=== PATIENT | male | born 1945 | race Caucasian/White ===

== ENCOUNTER → 2018-02-04 10:06 | Outpatient (POV) | payer MEDICARE, SELFPAY | PROVIDERS: Visit Provider Dermatology | DX: Z00.00 Encounter for general adult medical examination without abnormal findings (principal) ==

== ENCOUNTER 2020-01-14 10:15 | Emergency (ER) | payer MEDICARE, SELFPAY ==
--- NOTE | 2020-01-14 10:08 | ECG_ITS ---
APPROVED REPORT Exam: Resting ECG HR:50 bpm ECG Measurements Heart Rate 50 AXES WV 218 P -26 QRSd 90 QRS 59 QT 434 T 76 QTc 395 Conclusion Sinus bradycardia with marked sinus arrhythmia with 1st degree AV block Otherwise normal ECG Electronically signed by : Gabriel Hong, 01/15/2020 10:57:32
[2020-01-14 10:16] VITALS: BP 184/76; PULSE 51; RESP 16; TEMP 36.6; O2SAT 98; BMI 31.2
--- NOTE | 2020-01-14 10:20 | HMH.EDCP ---
ED Disposition Clinical Impression: Asymptomatic hypertension Radiculopathy Qualifiers: Spinal region: cervical Qualified Code(s): M54.12 - Radiculopathy, cervical region Disposition: Home, Self-Care Condition on Discharge: Good Instructions: DI for High Blood Pressure, DI for Cervical Radiculopathy Additional Instructions: Return immediately to the emergency department if you develop any chest pain, shortness of breath, new strength or sensation findings on your extremities, confusion, headache, or other acute new concerns. Referrals: PCP,Dina [Primary Care Provider] - Luis A Oseguera [Staff Physician] - 01/15/20 - Critical Care Critical Care Time: No Attestation: On , the high probability of a clinically significant, sudden or life threatening deterioration of the following system(s) required my full and direct attention, intervention and personal management. The time I documented below is in addition to time spent performing reported procedures but includes the following listed in this critical care notation. Medical Decision Making - Medical Records Medical records reviewed: Yes: I reviewed the patient's medical records. - John Inquiry Pt receiving controlled substance: No Vital Signs: 01/14/20 10:16 Temperature 98 F Temperature Source Oral Pulse Rate [Radial] 51 L Respiratory Rate 16 Blood Pressure [Right Arm] 184/76 H Blood Pressure Mean [Right Arm] 112 Blood Pressure Position [Right Arm] Sitting 02 Sat by Pulse Oximetry 98 Oxygen Delivery Method Room Air Orders (Tests/Meds): ORDERS Category Date Time Status XR chest portable Stat Exams 01/14/20 10:23 Stop Req Troponin I Q3H Lab 01/14/20 13:30 Ordered Troponin I Q3H Lab 01/14/20 16:30 Ordered - ECG Data Tracing #1 EKG at [address] segment elevation or depression. No hyperacute T waves. Normal intervals. EKG interpreted by me. Medical Decision Narrative: Patient here essentially with asymptomatic hypertension. He does not have any central nervous system lateralizing motor or sensory complaints, but does have a radiculopathy on the left arm which has been present for quite some time, not in association with hypertension. He is concerned because he was diagnosed with hypertension about 5 weeks ago and has not yet had good control of his blood pressure. This needs to be followed on an outpatient basis and I discussed with him the a set clinical policy that recommends no acute control of asymptomatic hypertension. I did encourage him to return for any acute new concerns such as chest pain, shortness of breath, new back or extremity pain, lateralizing motor or sensory changes. Patient agrees to follow-up with Dr. Oseguera within the next several days for reevaluation. Blood pressure 168 systolic on my exam. Chest Pain HPI - General Chief Complaint: Chest Pain Stated Complaint: chest pain Time Seen by Provider: 01/14/20 10:20 Mode of Arrival: Ambulatory Source of Information: Patient Limitations: No Limitations - History of Present Illness HPI narrative: This is a 74-year-old male with a past medical history significant for hypertension, chronic back pain who presents to the emergency department for evaluation of hypertension. Patient states that he was recently started on blood pressure medication about 5 weeks ago, lisinopril 5 mg. That was not controlling his blood pressure, so dose was increased to 10 mg. He has been trying to work through the [facility] for his care, but has a difficult time getting seen on an outpatient basis. Patient does not have any chest pain or shortness of breath. He has no vertiginous symptoms. He does state that sometimes when he bends over and stands back up he gets lightheaded. He does complain of some left arm tingling, but this is not new, has been present for many months, is constant and is associated with pain in his shoulder and neck. He has had rotator cuff surgery on both arms an
[2020-01-14 11:02] VITALS: BP 170/80; PULSE 50; RESP 18; TEMP 36.7; O2SAT 98
== END 2020-01-14 11:03 | disposition home or self-care (01) ==
PROVIDERS: Emergency Provider Emergency Medicine; PCP Internal Medicine
DX: R07.9 Chest pain, unspecified (principal); I10 Essential (primary) hypertension; M54.12 Radiculopathy, cervical region
CPT/HCPCS: 93005; 99282

== ENCOUNTER → 2020-05-17 09:29 | Outpatient (POV) | payer MEDICARE, SELFPAY | PROVIDERS: Visit Provider Otolaryngology | DX: Z00.00 Encounter for general adult medical examination without abnormal findings (principal) ==

== ENCOUNTER → 2020-05-23 07:53 | Outpatient (CLI) | payer MEDICARE, SELFPAY ==
[2020-05-23 11:07] LABS: Creatinine,Urine Random 69 mg/dL (Not Estab.)
[2020-05-23 14:32] LABS: Collection Time,Urine 24 hours; Creatinine 24 Hour,Urine 2760 mg/24hr (630-2500); Total Volume,Urine 4000 mL (250-2400)
[2020-05-25 14:57] LABS: Albumin, U 23.2 % (.); Alpha-1-Globulin, U 4.1 % (.); Beta Globulin, U 27.5 % (.); Gamma Globulin, U 27.3 % (.); M-Spike, % Not Observed % (Not Observed); Prot,24hr calculated 160 mg/24 hr (30-150)
== END ==
PROVIDERS: Visit Provider Internal Medicine
DX: R94.4 Abnormal results of kidney function studies (principal)
CPT/HCPCS: 82570; 84156; 84166

== ENCOUNTER → 2020-05-27 09:24 | Outpatient (CLI) | payer MEDICARE, OTHER, SELFPAY ==
--- NOTE | 2020-05-27 09:39 | US_ITS ---
PROCEDURE: US KIDNEY CLINICAL INDICATION: ELEVATED KIDNEY FUNCTION COMPARISON: No exams were available for comparison FINDINGS: The right kidney is [id number]. No hydronephrosis, cortical thinning, or renal mass or perinephric fluid collection is evident. The left kidney is [id number]. There are 3 small cysts in the lower pole on the left at 8 mm, 8 mm, and 10 mm. IMPRESSION: No hydronephrosis. Small left renal cysts Dictated by: Tree King MD 05/27/2020 16:57 Tree King MD in [facility] 05/27/2020 16:57
--- NOTE | 2020-05-27 09:40 | US_ITS ---
PROCEDURE: US URINARY BLADDER CLINICAL INDICATION: ELEVATED KIDNEY FUNCTION COMPARISON: No exams were available for comparison FINDINGS: Urinary bladder has an unremarkable appearance. Full bladder volume is estimated to be 150 mL. There is a moderate amount of postvoid residual urine estimated to be at 71 mL. No obvious mass apparent. IMPRESSION: Moderate amount of postvoid residual urine within the bladder. The full bladder volume is somewhat low at 150 mL. Dictated by: Tree King MD 05/27/2020 16:59 Tree King MD in [facility] 05/27/2020 16:59
== END ==
PROVIDERS: PCP Internal Medicine; Visit Provider Internal Medicine
DX: R94.4 Abnormal results of kidney function studies (principal)
CPT/HCPCS: 76770; 76857

== ENCOUNTER → 2020-07-11 08:54 | Outpatient (CLI) | payer MEDICARE, OTHER, SELFPAY ==
[2020-07-11 09:01] LABS: Microscopic, Urine URINE MICROSCOPIC (MICROSCOPIC)
[2020-07-11 09:29] LABS: Basophils # 0.1 K/mm3 (0-0.2); Basophils % 1.4 % (0.1-2.0); Eosinophils # 0.2 K/mm3 (0.0-0.4); Eosinophils % 3.5 % (0.1-12.0); Hematocrit 44.4 % (42.0-52.0); Hemoglobin 14.7 g/dL (14.1-18.0); Lymphocytes # 1.9 K/mm3 (0.7-4.5); Lymphocytes % 32.9 % (10-50); Mean Corpuscular HGB Conc 33.1 g/dL (31.8-35.4); Mean Corpuscular Volume 90.6 fl (80-94); Mean Platelet Volume 10.1 fl (7.4-10.4); Monocytes # 0.5 K/mm3 (0.1-1.0); Monocytes % 8.9 % (1.7-9.3); Neutrophils # 3.1 K/mm3 (1.8-7.8); Neutrophils % 53.2 % (37.0-80.0); Platelet Count 219 K/mm3 (142-424); Red Blood Count 4.89 M/mm3 (4.60-6.20); Red Cell Distribution Width 13.9 % (11.5-17.5); White Blood Count 5.9 K/mm3 (4.8-10.8)
[2020-07-11 09:48] LABS: Appearance,Urine CLEAR (Clear); Bilirubin,Urine Negative (Negative); Blood, Urine Negative (Negative); Color,Urine YELLOW (Yellow); Glucose,Urine (UA) Negative (Negative); Ketones,Urine Negative (Negative); Leukocyte Esterase,Urine Negative (Negative); Nitrate,Urine Negative (Negative); Protein,Urine Negative (Negative); Specific Gravity, Urine 1.015 (1.005-1.030)
[2020-07-11 09:54] LABS: Creatinine,Urine Random 94 mg/dL (Not Estab.)
[2020-07-11 10:48] LABS: Albumin Level 4.3 g/dl (3.5-5.0); Anion Gap 17.8 mEq/L (5-15); Blood Urea Nitrogen 21 mg/dl (9-20); Calcium 9.2 mg/dl (8.4-10.2); Carbon Dioxide 19 mmol/L (22.0-30.0); Chloride 106 mmol/L (98-107); Estimated Glomerular Filt Rate 59 ml/min (>60); GFR (African American) 71 ML/MIN (>60); Glucose 115 mg/dl (74-100); Phosphorous 3.3 mg/dl (2.5-4.5); Potassium 4.8 mmoL/L (3.5-5.1); Sodium 138 mmol/L (136-145)
== END ==
PROVIDERS: Visit Provider Internal Medicine Nephrology
DX: N18.30 Chronic kidney disease, stage 3 unspecified (principal)
CPT/HCPCS: 36415; 80069; 81001; 82306; 82570; 83970; 84155; 85025

== ENCOUNTER → 2020-08-22 09:27 | Outpatient (POV) | payer MEDICARE, OTHER, SELFPAY | PROVIDERS: Visit Provider Internal Medicine Nephrology | DX: Z00.00 Encounter for general adult medical examination without abnormal findings (principal) ==

== ENCOUNTER 2020-10-22 09:50 | Outpatient (CLI) | payer SELFPAY | END 2020-10-22 11:09 | disposition home or self-care (01) | PROVIDERS: PCP Internal Medicine; Visit Provider Physician Assistant | DX: Z02.4 Encounter for examination for driving license (principal) ==

== ENCOUNTER → 2020-12-27 11:46 | Outpatient (CLI) | payer MEDICARE, OTHER, SELFPAY | PROVIDERS: PCP Internal Medicine; Visit Provider Nurse Practitioner | DX: Z20.822 Contact with and (suspected) exposure to COVID-19 (principal) | CPT/HCPCS: C9803; U0003; U0005 ==

== ENCOUNTER → 2021-01-27 08:47 | Outpatient (CLI) | payer MEDICARE, OTHER, SELFPAY ==
--- NOTE | 2021-01-27 08:50 | FL_ITS ---
PROCEDURE: FL UPPER GI W AIR CLINICAL INDICATION: EPIGASTRIC PAIN, NAUSEA COMPARISON: No exams were available for comparison TECHNIQUE: FLUOROSCOPY TIME : 2 minutes 21 seconds FINDINGS: The swallowing function and esophageal motility are grossly normal except for a few tertiary contractions lower 3rd of the esophagus. Spot films of the cervical esophagus while swallowing barium shows no abnormal anterior or posterior indentation of the barium column. There is a small sliding hiatal hernia however there is no GE reflux seen during the study. The stomach was well distended with barium and air in shows no intrinsic abnormality. The duodenal bulb and duodenal sweep and ligament of Treitz appear normal. IMPRESSION: Small sliding hiatal hernia without GE reflux along with very mild esophageal dyskinesia involving the lower 3rd of the esophagus. Dictated by: Dr. Geovanny Connell MD 01/27/2021 10:42 Dr. Geovanny Connell MD in [place] 01/27/2021 10:42
== END ==
PROVIDERS: PCP Internal Medicine; Visit Provider Internal Medicine
DX: R10.13 Epigastric pain (principal); R11.0 Nausea
CPT/HCPCS: 74246

== ENCOUNTER → 2021-03-14 12:39 | Outpatient (CLI) | payer MEDICARE, OTHER, SELFPAY ==
[2021-03-14 12:45] LABS: Microscopic, Urine URINE MICROSCOPIC (MICROSCOPIC)
[2021-03-14 13:39] LABS: Appearance,Urine CLEAR (Clear); Bilirubin,Urine Negative (Negative); Blood, Urine Negative (Negative); Color,Urine YELLOW (Yellow); Glucose,Urine (UA) Negative (Negative); Ketones,Urine Negative (Negative); Leukocyte Esterase,Urine Negative (Negative); Nitrate,Urine Negative (Negative); Protein,Urine Negative (Negative); Urobilinogen,Urine 0.2 EU/dl (0.2)
[2021-03-14 13:44] LABS: Total Protein,Urine Random < 5.0 mg/dL (0.0-12.0)
[2021-03-14 13:45] LABS: Hematocrit 48.3 % (42.0-52.0); Hemoglobin 15.8 g/dL (14.1-18.0); Mean Corpuscular HGB Conc 32.7 g/dL (31.8-35.4); Mean Corpuscular Hemoglobin 30.4 pg (27.0-31.2); Mean Corpuscular Volume 92.8 fl (80-94); Platelet Count 243 K/mm3 (142-424); Red Cell Distribution Width 13.9 % (11.5-17.5); White Blood Count 7.2 K/mm3 (4.8-10.8)
[2021-03-14 13:53] LABS: Microalbumin < 6.000 mg/L (0-16.7)
[2021-03-14 14:32] LABS: WBC,Urine Occasional #/hpf (0-3)
[2021-03-14 14:37] LABS: Albumin Level 4.4 g/dl (3.5-5.0); Anion Gap 14.7 mEq/L (5-15); Blood Urea Nitrogen 34 mg/dl (9-20); Calcium 9.4 mg/dl (8.4-10.2); Carbon Dioxide 23 mmol/L (22.0-30.0); Chloride 102 mmol/L (98-107); Estimated Glomerular Filt Rate 46 ml/min (>60); GFR (African American) 55 ML/MIN (>60); Glucose 105 mg/dl (74-100); Phosphorous 3.2 mg/dl (2.5-4.5); Potassium 4.7 mmoL/L (3.5-5.1); Sodium 135 mmol/L (136-145)
== END ==
PROVIDERS: Visit Provider Internal Medicine Nephrology
DX: N18.31 Chronic kidney disease, stage 3a (principal)
CPT/HCPCS: 36415; 80069; 81001; 82043; 84155; 85014; 85018; 85048; 85049

== ENCOUNTER → 2021-12-29 09:26 | Outpatient (CLI) | payer MEDICARE, OTHER, SELFPAY ==
--- NOTE | 2021-12-29 | ECG_ITS ---
APPROVED REPORT Exam: Resting ECG HR:57 bpm ECG Measurements Heart Rate 57 AXES VT 237 P 87 QRSd 105 QRS 77 QT 433 T 76 QTc 427 Conclusion SINUS BRADYCARDIA WITH SINUS ARRHYTHMIA WITH FIRST DEGREE AV BLOCK ABNORMAL ECG Electronically signed by : Luis A Oseguera MD 12/29/2021 10:40:36
--- NOTE | 2021-12-29 09:43 | XR_ITS ---
FINAL REPORT TECHNIQUE: Chest PA & Lateral CLINICAL HISTORY: CHEST PAIN,HTN FINDINGS: 2 views of the chest were performed. The heart size is normal. The mediastinum is within normal limits. There is mild bibasilar atelectasis or scarring. There are no pleural effusions. There is no pneumothorax. There are moderate to severe degenerative changes of the thoracic spine. IMPRESSION: Mild bibasilar atelectasis or scarring. Reviewed, Interpreted and Dictated by Sam Fonseca III, MD Transcribed by Adam Mondragon Authenticated and [facility]
== END ==
PROVIDERS: PCP Internal Medicine; Visit Provider Internal Medicine
DX: R07.9 Chest pain, unspecified (principal); I10 Essential (primary) hypertension
CPT/HCPCS: 71046; 93005

== ENCOUNTER → 2022-01-19 07:14 | Outpatient (CLI) | payer MEDICARE, SELFPAY ==
--- NOTE | 2022-01-19 | CA_ITS ---
APPROVED REPORT Exam: Pharmacologic Technologist: Agustina Gomez, Ht: 6 ft 4 in Wt: 250 lbs BSA: 2.44 m2 HR: 59 bpm BP: 126/61 mmHg Rhythm: SR/PVCs Medical History Medications: Amlodipine,,,,, Lisinopril,,,,, Atorvastatin,,,,, HCTZ,,,,, Montelukast,,,,, Dicofenac,,,,, Cardiac Risk Factors: HTN Stress Test Details Test: LEXISCAN HR Resting HR: 61 bpm Max Heart Rate (APMHR): 143.139114 bpm Max HR Achieved: 82 bpm Target HR (85% APMHR): 121.602384 bpm % of APMHR: 57.34 Recovery HR: 60 bpm BP Resting BP: 126/61 mmHg Max BP: 126/61 mmHg Recovery BP: 89.0/50.0 mmHg ECG Resting ECG: SR/PVCs Clinical Exercise duration: 04:14 min Highest Stage Achieved: Exercise capacity: 1.0 METs Stress ECG Conclusion During lexiscan pt experinced dizziness during recovery. Frequent PVCs noted before and during lexiscan. Artifact noted. <1.5mm ST segment depression. Test Summary REST . . . . . . . Sitting REST 00:42 . . 61 . 126/ 61 . . Stage 1 . . . . . . . Cardiolite injected Stage 1 01:00 . . 66 . . . . Stage 2 01:00 . . 71 . . . . Stage 3 01:00 . . 63 . 97/ 48 . . Stage 4 01:00 . . 61 . 93/ 47 . . Stage 4 01:14 . . 62 . 93/ 47 . Stop exercise at 04:14 RECOVERY 01:00 . . 63 . 89/ 50 . . RECOVERY 02:00 . . 59 . 100/ 54 . . RECOVERY 02:32 . . 58 . 101/ 57 . . Electronically signed by : Bharath Mccray MD 01/19/2022 10:59:42
--- NOTE | 2022-01-19 07:21 | NM_ITS ---
APPROVED REPORT Exam: Nuclear Stress Test Indication: SOB, HTN, High cholesterol Patient Location: Outpatient Stress Tech: Agustina KESSLER Tech:Lubna Chavez LINRicarda RT(R)(N) Ht: 6 ft 4 in Wt: 250 lbs HR: 61 bpm BP: 126/61 mmHg BSA: 2.44 m2 TID: 1.19 BMI: 30.4 History: SOB, HTN, High cholesterol Procedure: Patient received a 0.4 mg of intravenous Lexiscan, resting heart rate 61 bpm, resting blood pressure 126/61 mmHg, with Lexiscan maximum heart rate achived was 82 bpm which is Less than 85 % of the maximum predicted heart rate and blood pressure was 126/61 mmHg. With Lexiscan, patient denied any complaint of chest pain. Electrocardiogram Resting electrocardiogram shows sinus rhythm, with Lexiscan there is less than 1.[address] segment depression noted from the baseline EKG. The EKG portion of the Lexiscan is nondiagnostic. Cardiac Stress and Resting SPECT Images: Cardiac Stress and Resting SPECT images were obtained using technetium 99m Myoview 29.3 mCi stress and 10.0 mCi at rest. Gated SPECT for analysis of segmental wall motion and calculation of the ejection fraction also done. Cardiac stress and rest SPECT images show mild fixed defect in the inferior wall with normal contractility gated SPECT is likely secondary to soft tissue attenuation from diaphragm, no reversible ischemia seen, computer derived ejection fraction is 48% with no regional wall motion abnormality, right ventricle is mildly enlarged with normal contractility. Conclusion: 1. The EKG portion of the Lexiscan is nondiagnostic. 2. No scintigraphic evidence of reversible ischemia seen, computer derived ejection fraction is 48% with no regional wall motion abnormality, right ventricle is mildly enlarged with normal contractility. 3. Likely normal Lexiscan Myoview study. Electronically signed by : Bharath Mccray MD 01/19/2022 13:29:36
--- NOTE | 2022-01-19 11:35 | HMH.ITSHM ---
Current Home Medications as stated by this patient Chin Tatum or provider service representative. []LISINOPRIL
== END ==
PROVIDERS: PCP Internal Medicine; Visit Provider Internal Medicine
DX: R07.89 Other chest pain (principal); R00.1 Bradycardia, unspecified; R94.31 Abnormal electrocardiogram [ECG] [EKG]
CPT/HCPCS: 78452; 93017; A9502; J2785

== ENCOUNTER 2022-04-24 11:39 | Emergency (ER) | payer MEDICARE, SELFPAY ==
--- NOTE | 2022-04-24 13:09 | EXP.UTC ---
Discharge Plan Disposition Patient Disposition: Home, Self-Care Condition: Good Prescriptions Prescriptions: No Action lisinopril 10 MG tablet 10 mg PO DAILY Referrals Follow up/Referrals: Luis A Oseguera MD [Primary Care Provider] - See instructions Activity Restrictions/Add. Instructions Additional Instructions/Restrictions: Keep the wound clean and dry. Watch the wound for signs of infection, such as redness, swelling, drainage, fever. etc. Take tylenol for pain if needed. Follow up with your regular doctor. Return in 7 days to have the viviana removed. GO TO THE ER FOR ANY WORSENING SYMPTOMS OR CONCERNS. Clinical Impressions Clinical Impression: Laceration of scalp, Need for [id number] (Tdap) vaccine Instructions Patient Instructions: Tetanus, Diphtheria, and Pertussis Vaccine, DI for Laceration Repair -- Viviana, DI for Laceration Repair of the Scalp Discharge ED Provider: Duane Loaiza [facility] [place] HPI General Stated complaint: [email or web address] lac on head Time Seen by Provider: 04/24/22 13:09 History of Present Illness Provider Complaint: He states that earlier today he was working on his truck when the gallagher fell down and hit him on the top of his head. He received a laceration on the top of his head. He denies any loss of consciousness. He denies taking blood thinners. Related Data Home Medications Medication Instructions Recorded Confirmed lisinopril 10 mg tablet 10 mg PO DAILY High blood pressure 01/14/20 04/24/22 Allergies Allergy/AdvReac Type Severity Reaction Status Date / Time No Known Allergies Allergy Verified 04/24/22 14:14 [facility] Disclaimer: The information contained in this section may have been updated after the patient was seen, as this information can be updated by other users. Social History Smoking Status: Never smoker alcohol intake: never current occupational status: employed Travel in the last 8 weeks: None ROS Obtained: Yes All systems reviewed & no additional complaints except as documented Constitutional Constitutional: Denies chills and Denies fever(s) Eyes Eyes: Denies eye discharge ENT Ears, Nose, Mouth, and Throat: Denies dizziness, Denies otalgia, Denies neck pain and Denies sore throat Cardiovascular Cardiovascular: Denies chest pain Respiratory Respiratory: Denies shortness of breath, Denies chest congestion, Denies cough, Denies stridor and Denies wheezing Gastrointestinal Gastrointestingal: Denies nausea or vomiting Musculoskeletal Musculoskeletal: Reports system reviewed and no additional complaints, except as documented, Denies arthralgias and Denies neck pain Integumentary/Breasts Skin/Breast: Reports as per HPI Neurologic Neurologic: Denies dizziness and Denies paresthesias Allergic/Immunologic Allergic/Immunologic: Denies wheezing Physical Exam General General appearance: alert and in no apparent distress Head Head exam: atraumatic, normocephalic and normal inspection Eye Eye exam: Present normal appearance, PERRL and EOMI ENT ENT exam: Present normal exam, normal oropharynx, mucous membranes moist, TM's normal bilaterally and normal external ear exam Neck Neck exam: Present normal inspection, full ROM and trachea midline; Absent meningismus or lymphadenopathy Chest Chest inspection: Present normal inspection and symmetric chest wall rise; Absent tenderness Respiratory Respiratory exam: Present normal lung sounds bilaterally; Absent respiratory distress Cardiovascular Cardiovascular exam: Present regular rate and normal rhythm; Absent JVD Abdominal Exam Abdominal exam: Present soft and normal bowel sounds; Absent distention, tenderness or guarding Extremities Exam Extremities exam: Present normal inspection, full ROM and normal capillary refill; Absent calf tenderness Back Exam Back exam: Present normal inspection; Absent tenderness Neurological
[2022-04-24 13:40] VITALS: BP 155/83; PULSE 53; RESP 20; TEMP 36.6; O2SAT 95; BMI 31.2
[2022-04-24 14:52] VITALS: BP 155/83; PULSE 53; RESP 20; TEMP 36.6; O2SAT 95
== END 2022-04-24 14:48 | disposition home or self-care (01) ==
PROVIDERS: Emergency Provider Nurse Practitioner Family; PCP Internal Medicine
DX: S01.01XA Laceration without foreign body of scalp, initial encounter (principal); W20.8XXA Other cause of strike by thrown, projected or falling object, initial encounter; Z23 Encounter for immunization
CPT/HCPCS: 12002; 90471; 90715; 99213; G0463

== ENCOUNTER 2022-05-03 12:06 | Emergency (ER) | payer MEDICARE, SELFPAY ==
--- NOTE | 2022-05-03 12:23 | EXP.UTC ---
Discharge Plan Prescriptions Prescriptions: No Action lisinopril 10 MG tablet 10 mg PO DAILY Referrals Follow up/Referrals: Luis A Oseguera MD [Primary Care Provider] - See instructions Discharge ED Provider: Duane Loaiza [facility] [place] HPI General Stated complaint: Suture removal Time Seen by Provider: 05/03/22 12:23 Related Data Home Medications Medication Instructions Recorded Confirmed lisinopril 10 mg tablet 10 mg PO DAILY High blood pressure 01/14/20 04/24/22 Allergies Allergy/AdvReac Type Severity Reaction Status Date / Time No Known Allergies Allergy Verified 04/24/22 14:14 [facility] Disclaimer: The information contained in this section may have been updated after the patient was seen, as this information can be updated by other users. Social History (Updated 04/24/22 @ 14:57 by Duane Loaiza APRN) Smoking Status: Never smoker alcohol intake: never current occupational status: employed Travel in the last 8 weeks: None
[2022-05-03 12:44] VITALS: BP 143/70; PULSE 61; RESP 20; O2SAT 96; BMI 31.2
[2022-05-03 12:46] VITALS: BP 140/68; PULSE 61; RESP 20; TEMP 36.8; O2SAT 96
== END 2022-05-03 12:56 | disposition home or self-care (01) ==
PROVIDERS: Emergency Provider Nurse Practitioner Family; PCP Internal Medicine
DX: Z48.02 Encounter for removal of sutures (principal)

== ENCOUNTER → 2022-10-09 11:18 | Outpatient (CLI) | payer SELFPAY | PROVIDERS: PCP Internal Medicine; Visit Provider Nurse Practitioner Family | DX: Z02.4 Encounter for examination for driving license (principal) ==

== ENCOUNTER → 2023-02-01 17:37 | Outpatient (CLI) | payer MEDICARE, SELFPAY ==
[2023-02-01 18:30] LABS: Basophils % 0.1 % (0.1-2.0); Hematocrit 44.8 % (42.0-52.0); Hemoglobin 15.3 g/dL (14.1-18.0); Lymphocytes % 12.6 % (10-50); Mean Corpuscular HGB Conc 34.1 g/dL (31.8-35.4); Mean Corpuscular Hemoglobin 30.9 pg (27.0-31.2); Mean Corpuscular Volume 90.5 fl (80-94); Monocytes # 0.2 K/mm3 (0.1-1.0); Monocytes % 2.9 % (1.7-9.3); Neutrophils # 6.8 K/mm3 (1.8-7.8); Neutrophils % 84.5 % (37.0-80.0); Platelet Count 253 K/mm3 (142-424); Red Blood Count 4.96 M/mm3 (4.60-6.20); Red Cell Distribution Width 14.3 % (11.5-17.5)
[2023-02-01 19:02] LABS: Anion Gap 17.8 mEq/L (5-15); Blood Urea Nitrogen 23 mg/dl (9-20); Calcium 8.8 mg/dl (8.4-10.2); Carbon Dioxide 23 mmol/L (22.0-30.0); Chloride 99 mmol/L (98-107); Estimated Glomerular Filt Rate 65 ml/min (>60); GFR (African American) 78 ML/MIN (>60); Glucose 114 mg/dl (74-100); Potassium 4.8 mmoL/L (3.5-5.1); Sodium 135 mmol/L (136-145)
[2023-02-01 19:50] LABS: Vitamin B12 781 pg/mL (239-931)
== END ==
PROVIDERS: PCP Internal Medicine; Visit Provider Internal Medicine
DX: R27.0 Ataxia, unspecified (principal); N18.9 Chronic kidney disease, unspecified; N40.1 Benign prostatic hyperplasia with lower urinary tract symptoms; I12.9 Hypertensive chronic kidney disease with stage 1 through stage 4 chronic kidney disease, or unspecified chronic kidney disease
CPT/HCPCS: 80048; 82607; 85025

== ENCOUNTER → 2023-02-13 09:55 | Outpatient (CLI) | payer MEDICARE, SELFPAY ==
--- NOTE | 2023-02-13 | CA_ITS ---
APPROVED REPORT EXAM: Comprehensive 2D, Doppler, and color-flow Echocardiogram [place] Teacher: NEHA Proctor, RVS Ht: 6 ft 4 in Wt: 250lbs BSA: 2.44 BP: 126/61 mmHg Indications: HTN, edema, dyspnea normal biventricular systolic function. 2D Dimensions Left Atrium 2.65 cm LA Volume 58.60 mL LA Volume Index 24.898990 mL/m2 (M/F) 16-34 M-Mode Dimensions RVDd 2.34 cm (0.9-2.6) LA Diam 4.40 cm (1.9-4.0) LVDd 5.64 cm (3.5-5.7) LVDs 3.75 cm (3.5-5.7) IVSd 1.13 cm (0.6-1.1) PWd 1.53 cm (0.6-1.1) EF (Teich) 61.60% EPSs 0.93 cm FS 33.50% EDV (Teich) 156.20 mL TAPSE 3.07 (<1.7) ESV (Teich) 60.00 mL LV Diastology E Decel Time 223 (160-240 msec) E/A Ratio 0.84 MED A' 12.10 cm/s LAT A' 11.60 cm/s Aortic Valve GARO Index 1.27 cm2/m2 AoV Peak Kenny. 103.0 (50-130 cm/s) AO Peak GR. 4.20 mmHg AO Mean GR. 2.10 (<5 mmHg) AO VTI 21.4 (18-25 cm) GARO (VTI) 3.16 (2.5-4.5 cm2) Mitral Valve MV A Velocity 106.0 (40-130 cm/s) E/A Ratio 0.84 Pulmonary Valve TN End VMAX 183.0 cm/s Left Ventricle The left ventricle is normal size. The left ventricular systolic function is normal. The left ventricular ejection fraction is within the normal range. There is normal left ventricular wall thickness. There is normal LV segmental wall motion. The left ventricular diastolic function is normal. LVEF is 55%. Right Ventricle The right ventricle is mildly dilated. The right ventricular systolic function is normal. Atria The left atrium size is normal. The right atrium size is normal. There is no Doppler evidence of interatrial shunt. Aortic Valve The aortic valve is mildly thickened. There is no aortic valvular stenosis. No aortic regurgitation is present. Mitral Valve The mitral valve leaflets are mildly thickened. No evidence of mitral valve stenosis. Trace mitral regurgitation. Tricuspid Valve The tricuspid valve leaflets are thin and pliable. Trace tricuspid regurgitation. Pulmonic Valve The pulmonary valve is normal in structure. Mild pulmonic regurgitation. Great Vessels The aortic root is normal in size. The ascending aorta is normal in size. IVC is normal in size and collapses >50% with inspiration. Pericardium There is no pericardial effusion. Other Information Study Quality: Technically Difficult Conclusion Technically difficult study due to poor acoustic windows. Normal biventricular systolic function. Mild RV dilation. No significant valvular stenosis or regurgitation. Electronically signed by : Britni Alejandra MD 02/17/2023 21:52:41
== END ==
PROVIDERS: PCP Internal Medicine; Visit Provider Internal Medicine
DX: R06.09 Other forms of dyspnea (principal); I10 Essential (primary) hypertension; R60.0 Localized edema
CPT/HCPCS: 93306

== ENCOUNTER 2023-03-22 17:03 | Outpatient (CLI) | payer MEDICARE, SELFPAY ==
[2023-03-22 17:58] LABS: Chloride 104 mmol/L (98-107); Potassium 5.3 mmoL/L (3.5-5.1); Sodium 135 mmol/L (136-145)
[2023-03-22 18:01] LABS: Alanine Aminotransferase 34 U/L (12-78); Albumin Level 4.2 g/dl (3.5-5.0); Albumin/Globulin Ratio 1.4 (1.1-1.8); Alkaline Phosphatase 121 U/L (38-126); Anion Gap 14.3 mEq/L (5-15); Aspartate Amino Transferase 34 U/L (17-59); Bilirubin,Total 0.8 mg/dl (0.2-1.3); Blood Urea Nitrogen 30 mg/dl (9-20); Carbon Dioxide 22 mmol/L (22.0-30.0); Estimated Glomerular Filt Rate 53 ml/min (>60); GFR (African American) 65 ML/MIN (>60); Globulin 2.9 g/dL (1.3-3.2); Total Protein,Serum 7.1 g/dl (6.3-8.2)
[2023-03-22 18:02] LABS: Calcium 8.8 mg/dl (8.4-10.2); Glucose 88 mg/dl (74-100)
[2023-03-22 18:11] LABS: NT Pro Brain Natriuretic Pep. 883 pg/mL (0-450)
[2023-03-22 18:32] LABS: Thyroid Stimulating Hormone 3.24 uIU/mL (0.465-4.68)
== END 2023-03-22 23:59 ==
LOC: LAB.DROPOF 17:04
PROVIDERS: PCP Internal Medicine; Visit Provider Internal Medicine
DX: R60.9 Edema, unspecified (principal); I10 Essential (primary) hypertension; E87.5 Hyperkalemia; R79.0 Abnormal level of blood mineral; R06.09 Other forms of dyspnea
CPT/HCPCS: 80053; 83880; 84443

== ENCOUNTER 2023-04-08 11:05 | Outpatient (CLI) | payer MEDICARE, SELFPAY ==
--- NOTE | 2023-04-08 11:13 | XR_ITS ---
FINAL REPORT CLINICAL HISTORY: back pain with radiation COMPARISON: None FINDINGS: AP and 2 lateral views of the lumbar spine were obtained. There is no prior exam for comparison. There is no acute fracture or malalignment. Vertebral body height is preserved. There is advanced hypertrophic degenerative disc disease present at the L3-4 and L5-S1 levels. There is mild levoscoliosis of 13 degrees. No acute paraspinal abnormality. IMPRESSION: No acute osseous abnormality of the lumbar spine. Degenerative change as described above, most severe at the L3-4 and L5-S1 levels. Reviewed, Interpreted and Dictated by Chance Gomez MD Transcribed by Basilia Dunn Authenticated and [facility]
[2023-04-08 15:56] LABS: Anion Gap 12.7 mEq/L (5-15); Blood Urea Nitrogen 25 mg/dl (9-20); Carbon Dioxide 30 mmol/L (22.0-30.0); Chloride 99 mmol/L (98-107); Estimated Glomerular Filt Rate 53 ml/min (>60); GFR (African American) 65 ML/MIN (>60); Glucose 89 mg/dl (74-100); Potassium 4.7 mmoL/L (3.5-5.1); Sodium 137 mmol/L (136-145)
== END 2023-04-08 23:59 ==
PROVIDERS: PCP Internal Medicine; Visit Provider Nurse Practitioner Family
DX: G89.29 Other chronic pain (principal); M54.50 Low back pain, unspecified; R20.0 Anesthesia of skin; R20.2 Paresthesia of skin; R26.89 Other abnormalities of gait and mobility; R00.1 Bradycardia, unspecified; R60.9 Edema, unspecified; I10 Essential (primary) hypertension
CPT/HCPCS: 72100; 80048; 93225; 94762

== ENCOUNTER 2023-04-12 11:14 | Outpatient (CLI) | payer MEDICARE, SELFPAY ==
[2023-04-12 12:32] LABS: Basophils # 0.1 K/mm3 (0-0.2); Basophils % 0.8 % (0.1-2.0); Eosinophils # 0.1 K/mm3 (0.0-0.4); Eosinophils % 1.2 % (0.1-12.0); Hematocrit 52.4 % (42.0-52.0); Hemoglobin 17.3 g/dL (14.1-18.0); Lymphocytes # 2.3 K/mm3 (0.7-4.5); Lymphocytes % 28.6 % (10-50); Mean Corpuscular Volume 90.9 fl (80-94); Mean Platelet Volume 8.6 fl (7.4-10.4); Monocytes # 0.8 K/mm3 (0.1-1.0); Monocytes % 10.1 % (1.7-9.3); Neutrophils # 4.9 K/mm3 (1.8-7.8); Neutrophils % 59.4 % (37.0-80.0); Platelet Count 263 K/mm3 (142-424); Red Blood Count 5.76 M/mm3 (4.60-6.20); Red Cell Distribution Width 13.8 % (11.5-17.5); White Blood Count 8.2 K/mm3 (4.8-10.8)
[2023-04-12 13:15] LABS: Alanine Aminotransferase 32 U/L (12-78); Albumin Level 4.6 g/dl (3.5-5.0); Albumin/Globulin Ratio 1.4 (1.1-1.8); Alkaline Phosphatase 117 U/L (38-126); Anion Gap 14.3 mEq/L (5-15); Aspartate Amino Transferase 32 U/L (17-59); Bilirubin,Total 0.8 mg/dl (0.2-1.3); Blood Urea Nitrogen 38 mg/dl (9-20); Carbon Dioxide 28 mmol/L (22.0-30.0); Chloride 100 mmol/L (98-107); Estimated Glomerular Filt Rate 45 ml/min (>60); GFR (African American) 55 ML/MIN (>60); Globulin 3.2 g/dL (1.3-3.2); Glucose 104 mg/dl (74-100); Potassium 5.3 mmoL/L (3.5-5.1); Sodium 137 mmol/L (136-145); Total Protein,Serum 7.8 g/dl (6.3-8.2)
[2023-04-12 13:22] LABS: NT Pro Brain Natriuretic Pep. 131 pg/mL (0-450)
[2023-04-12 13:43] LABS: Thyroid Stimulating Hormone 2.57 uIU/mL (0.465-4.68)
[2023-04-12 14:19] LABS: Vitamin B12 864 pg/mL (239-931)
[2023-04-12 14:33] LABS: Folate 5.17 ng/mL
== END 2023-04-12 23:59 ==
PROVIDERS: PCP Internal Medicine; Visit Provider Nurse Practitioner Family
DX: G89.29 Other chronic pain (principal); I95.1 Orthostatic hypotension; M54.50 Low back pain, unspecified; R00.1 Bradycardia, unspecified; R06.02 Shortness of breath; R06.83 Snoring; R20.0 Anesthesia of skin; R20.2 Paresthesia of skin; R26.89 Other abnormalities of gait and mobility; R53.83 Other fatigue
CPT/HCPCS: 36415; 80053; 82607; 82746; 83880; 84443; 85025

== ENCOUNTER 2023-04-16 09:51 | Outpatient (CLI) | payer MEDICARE, SELFPAY ==
[2023-04-16 10:19] LABS: Chloride 101 mmol/L (98-107); Potassium 4.3 mmoL/L (3.5-5.1); Sodium 135 mmol/L (136-145)
[2023-04-16 10:22] LABS: Anion Gap 11.3 mEq/L (5-15); Blood Urea Nitrogen 24 mg/dl (9-20); Carbon Dioxide 27 mmol/L (22.0-30.0); Estimated Glomerular Filt Rate 49 ml/min (>60); GFR (African American) 59 ML/MIN (>60)
[2023-04-16 10:23] LABS: Glucose 104 mg/dl (74-100)
[2023-04-23 10:35] LABS: PTH Related Peptide < 2.0
== END 2023-04-16 23:59 ==
LOC: LAB 09:51
PROVIDERS: PCP Internal Medicine; Visit Provider Nurse Practitioner Family
DX: E87.5 Hyperkalemia (principal); G89.29 Other chronic pain; I95.1 Orthostatic hypotension; M54.50 Low back pain, unspecified; R00.1 Bradycardia, unspecified; R06.02 Shortness of breath; R06.83 Snoring; R20.0 Anesthesia of skin; R20.2 Paresthesia of skin; R26.89 Other abnormalities of gait and mobility; R53.83 Other fatigue
CPT/HCPCS: 36415; 80048; 82397

== ENCOUNTER 2023-04-29 06:49 | Outpatient (CLI) | payer MEDICARE, SELFPAY ==
[2023-04-26 15:23] VITALS: BMI 30.6
--- NOTE | 2023-04-29 06:53 | CT_ITS ---
APPROVED REPORT Improvement Engineer: CLINICAL INDICATION Chest Pain TECHNIQUE Image Acquisition: A 128 slice MDCT scanner ([employer] View) was used for data acquisition. A noncontrast coronary calcium scan was performed. A CT attenuation threshold of 130 Hounsfield units (HU) was used for the detection of calcium in contiguous voxels of 1 sq mm in area to be counted as individual lesions. Bolus tracking in the ascending aorta with a threshold of 180 HU was performed. Immediately afterwards, ECG synchronized cardiac CT was then performed from the cardiac base to apex using retrospective gating with ECG tube current modulation. A total of 85 mL of Isovue 370 mg/mL contrast medium was administered at 5 mL/sec followed by a saline flush using a biphasic injection protocol. A tube voltage of 120 KVp was used. The patient received the following medications prior to the cardiac CT. 0.8 mg of sublingual nitroglycerin The average heart rate at the time of acquisition was 53 bpm and regular. Image Reconstruction Transaxial images were reconstructed at 0.67 mm slide thickness. Data was reviewed interactively on an advanced workstation capable of 2 and 3-dimensional displays in all conventional reconstruction formats, including multiplanar reformations, maximum intensity projections, curved multiplanar reformations, and volume rendered reconstructions. When applicable, selected routine images describing the relevant coronary anatomy and pathology were saved and sent to PACS. Complications None Technical Quality Overall image quality was suboptimal. Coronary artery opacification was suboptimal. Total DLP (Dose-Length Product) is 2141.1 mGy-cm. The reported value represents the total of one or more individual components during the CT acquisition of this date and at this time, and as such, the same value may appear in more than one CT report depending on the interpreting/reporting physicians. COMPARISON None FINDINGS CT Coronary Calcium Scoring LMA (Left Main Artery) = 21 LAD (Left Anterior Descending) = 108 LCX (Left Coronary Circumflex) = 119 RCA (Right Coronary Artery) = 28 Total Calcium Score = 276 using the AJ-130 method. The observed calcium score of 276 is at 46th percentile for subjects of the same age, sex, and race/ethnicity. The interpretation of the calcium heart score is based on the following continuum*: 0 = no calcified plaque detected (risk of coronary artery disease is very low ??? less than 5%) 1-10 = calcium detected in extremely minimal levels (risk of coronary diseases is still low ??? less than 10%) 11-100 = mild levels of plaque detected with certainty (mild or minimal narrowing of heart arteries is likely) 101-400 = definite,at least moderate levels of plaque detected (relatively high risk of a heart attack within 3-5 years) >401-999 = extensive levels of plaque detected (high risk of heart attack, high levels of vascular disease are present, high likelihood of at least one significant coronary narrowing) *The calcium heart score quantifies the burden of coronary calcification/plaque in the coronary arteries. The calcium heart score is not able to evaluate the presence or burden of non-calcified (i.e. soft) plaque. There is also identifiable calcification in the ascending and descending thoracic aorta. Coronary CT Angiography The coronary arterial system is left dominant. Quantitative Stenosis Grading: Left Main (LM): The left main originates normally from the left sinus of Valsalva. The LM bifurcates into the left anterior descending artery and left circumflex artery. There is calcification in the mid to distal LM, but without evidence of luminal stenosis.. Left Anterior Descending (LAD) and Diagonal Branches: The LAD gives off 2 diagonal branch(es). There is mixed calcified/noncalcified plaque present in the proximal, mid, and distal LAD segments, with up to 50-70% moderate luminal stenosis in the proximal LAD. There is no evidence of LAD-myocardial bridge. Left Circumflex (LCX) and Obtuse Marginals (OM): The LCX gives off 2 Obtuse Marginal (OM) branch(es). The LCX gives off a posterior descending artery (PDA). There is mixed calcified/noncalcified plaque in the proximal and mid LCX, with up to 70-90% severe luminal stenosis noted in the mid LCX segment. Right Coronary Artery (RCA): The RCA originates normally from the right sinus of Valsalva. The RCA is a small-vessel caliber. There is calcification in the proximal RCA, but without evidence of luminal stenosis. Non-Coronary Cardiac Findings: Analysis of the left ventricular (LV) structure and function was performed after 3-D reconstruction of the LV from axial images, with user-corrected automatic contouring for assessment of LV volumes and user-defined reconstruction from oblique planes for measurement of 3-D cardiac structure and function. LVEDV: 210 mL LVESV: 74 mL SV: 136 mL LVEF: 65% -The left ventricle is normal in size with normal left ventricular systolic function. -There is no left atrial appendage filling defect. Two right pulmonary veins and two left pulmonary veins drain normally into the left atrium. -No pericardial thickening or calcification. -Central and branch pulmonary arteries in the [id number] are unremarkable. -Thoracic aorta within the visualized thoracic aortic-branches in the [id number] is unremarkable. Extracardiac Structures No significant extra-cardiac findings. Note, however, that this study is focused on the cardiac findings. IMPRESSION -Suboptimal study due to poor image quality and suboptimal contrast opacification. This may affect the diagnostic interpretation of the study findings. -Presence of coronary calcification with an Agatston score = 276 using the AJ-130 method. -The observed calcium score of 276 is at 46th percentile for subjects of the same age, sex, and race/ethnicity. -Presence of multivessel atherosclerosis, with likely flow-limiting disease in the distal LCx (left dominant circulation) and possibly in the mid LAD. -CAD-RADS 4A. Management recommendations per ACC/AHA guidelines*, as clinically appropriate. *Recommendations: CAD RADS 0: Reassurance. Consider non-atherosclerotic causes of chest pain. CAD RADS 1: Consider non-atherosclerotic causes of chest pain. Consider preventive therapy and risk factor modification. CAD RADS 2: Consider non-atherosclerotic causes of chest pain. Consider preventive therapy and risk factor modification, particularly for patients with nonobstructive plaque in multiple segments. CAD RADS 3: Consider further functional testing. Consider symptom-guided anti-ischemic and preventive pharmacotherapy as well as risk factor modification per published guideline statements. CAD RADS 4A: Consider further functional testing or invasive coronary angiography with revascularization per published guideline statements. Consider symptom-guided anti-ischemic and preventive pharmacotherapy as well as risk factor modification per published guideline statements. CAD RADS 4B: Invasive coronary angiography recommended with revascularization per published guideline statements. Consider symptom-guided anti-ischemic and preventive pharmacotherapy as well as risk factor modification per published guideline statements. CAD RADS 5: Consider invasive angiography and/or viability assessment with revascularization per published guideline statements. Consider symptom-guided anti-ischemic and preventive pharmacotherapy as well as risk factor modification per published guideline statements. CRITICAL RESULT None COMMUNICATION Per this written report The coronary and cardiac findings of this CCTA were reviewed, reported, and signed by Leonid Alejandra MD (Jet Worker) Conclusion Electronically signed by : Britni Alejandra MD 05/02/2023 09:50:45
[2023-04-29 07:15] VITALS: BP 151/75; PULSE 56; RESP 18; O2SAT 97
[2023-04-29 07:40] VITALS: BP 155/78; PULSE 58; RESP 17; O2SAT 96
[2023-04-29] MEDS: NITROGLYCERIN 0.4MG SL TABLET 0.800000000000000044 MG SL (07:40)
[2023-04-29 07:46] VITALS: BP 125/68; PULSE 52; RESP 16; O2SAT 99
[2023-04-29 07:53] VITALS: BP 140/77; PULSE 56; RESP 17; O2SAT 96
[2023-04-29 08:03] VITALS: BP 132/75; PULSE 52; RESP 17; O2SAT 95
[2023-04-29] MEDS: IOPAMIDOL-370 (76%);100ML BOTTLE 85 ML IV (08:03)
[2023-04-29] MEDS: 0.9 % SODIUM CHLORIDE 50 ML VIAL IV (08:03)
[2023-04-29 08:13] VITALS: BP 145/72; PULSE 51; RESP 17; O2SAT 97
== END 2023-04-29 08:23 | disposition home or self-care (01) ==
PROVIDERS: PCP Internal Medicine; Visit Provider Physician Assistant
DX: R00.1 Bradycardia, unspecified (principal); R06.02 Shortness of breath; R07.89 Other chest pain; R42 Dizziness and giddiness; R94.31 Abnormal electrocardiogram [ECG] [EKG]
CPT/HCPCS: 75571; 75574; Q9967

== ENCOUNTER 2023-05-06 11:31 | Outpatient (CLI) | payer MEDICARE, SELFPAY ==
[2023-05-06 16:40] LABS: Hemoglobin A1C 5.9 % (4.0-6.0)
== END 2023-05-06 23:59 ==
LOC: LAB 11:31
PROVIDERS: PCP Internal Medicine; Visit Provider Specialist
DX: R73.9 Hyperglycemia, unspecified (principal)
CPT/HCPCS: 36415; 83036

== ENCOUNTER 2023-05-08 10:40 | Outpatient (CLI) | payer MEDICARE, SELFPAY ==
--- NOTE | 2023-05-08 10:51 | MR_ITS ---
FINAL REPORT CLINICAL HISTORY: Eval for myelopathy COMPARISON: None FINDINGS: Multiplanar MR imaging of the lumbar spine was performed without contrast. On the sagittal T2-weighted images, there is abnormal decreased signal throughout the lumbar discs. Endplate reactive change is present at the L4-5 and L5-S1 levels. The vertebrae are of normal height. The vertebral alignment is normal. T12-L1: There is no significant canal stenosis or neural foraminal narrowing. L1-2: A small annular bulge is present with mild bilateral neural foraminal narrowing. L2-3: A small annular bulge is present with posterolateral disc protrusions, producing mild canal stenosis and mild to moderate bilateral neural foraminal narrowing. L3-4: A moderate annular bulge is present with posterolateral disc protrusions, with moderate canal stenosis, moderate to severe bilateral neural foraminal narrowing, greater on the right side than the left. L4-5: A small annular bulge is present with endplate hypertrophy and moderate bilateral neural foraminal narrowing. L5-S1: There is a moderate annular bulge present with endplate hypertrophy, with moderate right and severe left neural foraminal narrowing. IMPRESSION: Multilevel lumbar degenerative change as described, most severe at the L3-4 and L5-S1 levels as described. Reviewed, Interpreted and Dictated by Chance Gomez MD Transcribed by Basilia Dunn Authenticated and [facility]
== END 2023-05-08 23:59 ==
LOC: RAD 10:44
PROVIDERS: PCP Internal Medicine; Visit Provider Specialist
DX: G89.29 Other chronic pain (principal); M54.50 Low back pain, unspecified; R93.89 Abnormal findings on diagnostic imaging of other specified body structures; R94.130 Abnormal response to nerve stimulation, unspecified
CPT/HCPCS: 72148; 76376

== ENCOUNTER 2023-05-09 14:05 | Observation (INO) | payer MEDICARE, SELFPAY ==
[2023-05-09] VITALS (18 sets, daily range): BP systolic 95–139; BP diastolic 46–73; PULSE 48–72; RESP 16–18; TEMP 36.6–36.9; O2SAT 90–99; BMI 31.5; BMI 30.3
--- NOTE | 2023-05-09 07:12 | IR_ITS ---
APPROVED REPORT Patient Location: Outpatient Tail Worker: ANTONI Trujillo RT (R) PROCEDURES Left heart catheterization Selective coronary angiogram Drug-eluting stent deployment to the proximal dominant circumflex artery Intravascular ultrasound to the proximal 80 INDICATION Coronary artery disease, Angina pectoris, Abnormal CCTA, Angiographic ambiguity in the proximal LAD Informed consent was obtained prior to the procedure. COMPLICATIONS NONE Estimated Blood Loss: LESS THAN 10 ML TECHNIQUE One percent lidocaine used to anesthetize the right anterior aspect of the wrist. The right radial artery was accessed via the Seldinger technique. A 6 [place] sheath was placed in the right radial artery. 2.5 mg of Verapamil, 800 mcg of nitroglycerin, 1mg Lidocaine and 5000 U Heparin were given through the arterial sheath. The papa catheter was also used to perform left heart catheterization and selective coronary angiogram. At the end of the procedure therapeutic heparin was administered giving a therapeutic ACT and the guide catheter was placed in left main artery followed by Choice PT extra-support wire down the circumflex artery. A 4 mm x 18 mm Adonis frontier stent was deployed at 20 justice reducing the severe stenosis to 0%. PRAVEEN-3 flow was present before and after the procedure. Following this the wire was placed down the LAD and intravascular ultrasound probe was advanced. The proximal LAD had an MLA of 5.5 mm???. Because this was not hemodynamically significant the apparatus was removed the sheath was removed and hemostasis was achieved using TR banding patient was transferred to the postop holding in stable condition ANGIOGRAPHIC RESULTS The left main artery Normal The left anterior descending artery Has a proximal 50% stenosis with a mid vessel 30% stenosis followed by an additional mid vessel 40 to 50% stenosis along a tortuous bend. Large first diagonal artery has a long proximal 50% stenosis The circumflex artery Is a large dominant vessel and has a proximal concentric 80 to 90% stenosis with additional mid vessel 40% stenosis The right coronary artery Small nondominant with mid vessel 70% stenoses The GATES ventriculogram reveals Not performed The left ventricular end-diastolic pressure 10 mmHg IMPRESSION Severe disease in the proximal dominant circumflex artery with successful stenting reducing the severe to critical stenosis to 0% with 1 drug-eluting stent Moderate disease scattered throughout the proximal and mid LAD as well as a large first diagonal artery as described above Normal left ventricular end-diastolic pressure PLAN 1. Dual antiplatelet therapy 2. Risk factor modification 3. Cardiac rehabilitation 4. LDL less than 55 to be achieved with high intensity statin 5. Avoidance of tobacco products Electronically signed by : Matthew Perez MD 05/09/2023 12:29:14
[2023-05-09 11:12] LABS: Basophils % 0.5 % (0.1-2.0); Eosinophils # 0.1 K/mm3 (0.0-0.4); Eosinophils % 1.4 % (0.1-12.0); Hematocrit 47.7 % (42.0-52.0); Hemoglobin 15.5 g/dL (14.1-18.0); Lymphocytes # 2.3 K/mm3 (0.7-4.5); Lymphocytes % 31.5 % (10-50); Mean Corpuscular HGB Conc 32.6 g/dL (31.8-35.4); Mean Corpuscular Hemoglobin 29.4 pg (27.0-31.2); Mean Corpuscular Volume 90.3 fl (80-94); Monocytes # 0.6 K/mm3 (0.1-1.0); Monocytes % 8.6 % (1.7-9.3); Neutrophils # 4.2 K/mm3 (1.8-7.8); Platelet Count 245 K/mm3 (142-424); Red Blood Count 5.28 M/mm3 (4.60-6.20); Red Cell Distribution Width 13.6 % (11.5-17.5); White Blood Count 7.2 K/mm3 (4.8-10.8)
[2023-05-09 11:18] LABS: Chloride 108 mmol/L (98-107); Sodium 137 mmol/L (136-145)
[2023-05-09 11:19] LABS: Potassium 4.4 mmoL/L (3.5-5.1)
[2023-05-09 11:21] LABS: Blood Urea Nitrogen 22 mg/dl (9-20); Creatinine Clearance Estimated 78 mL/min (50-200); Estimated Glomerular Filt Rate 53 ml/min (>60); GFR (African American) 65 ML/MIN (>60)
[2023-05-09 11:22] LABS: Anion Gap 7.4 mEq/L (5-15); Calcium 9.1 mg/dl (8.4-10.2); Carbon Dioxide 26 mmol/L (22.0-30.0); Glucose 104 mg/dl (74-100)
[2023-05-09] MEDS: LIDOCAINE 1% 10ML MDV 20 ML IJ (11:38)
[2023-05-09] MEDS: NITROGLYCERIN 800MCG/8ML SYR (CATH LAB) 800 MCG IA (11:38)
[2023-05-09] MEDS: 0.9 % SODIUM CHLORIDE 500 ML 25 ML IV (11:38)
[2023-05-09] MEDS: HEPARIN 1,000 UNITS/ML 10ML VIAL (CATH LAB) 10000 UNIT IV (11:38)
[2023-05-09] MEDS: HEPARIN 1,000 UNITS/500ML NS (CATH LAB) 3000 UNIT IV (11:38)
[2023-05-09] MEDS: diphenhydrAMINE 50MG/ML VIAL 50 MG IV (11:38)
[2023-05-09] MEDS: VERAPAMIL 2.5MG/ML 2ML VIAL 2.5 MG IV (11:39)
[2023-05-09] MEDS: FENTANYL 100MCG/2ML VIAL 25 MCG IV (12:25)
[2023-05-09] MEDS: MIDAZOLAM HCL 1MG/1ML 5ML VIAL 1 MG IV (12:25)
[2023-05-09] MEDS: IOPAMIDOL-370 (76%);100ML BOTTLE 105 ML IV (12:39)
[2023-05-09 12:41] LABS: CATHL Activated Clotting Time 337 SEC (74-125)
--- NOTE | 2023-05-09 13:15 | ECG_ITS ---
APPROVED REPORT Exam: Resting ECG HR:49 bpm ECG Measurements Heart Rate 49 AXES GA 310 P 12 QRSd 100 QRS 58 QT 458 T 57 QTc 427 Conclusion SINUS BRADYCARDIA WITH FIRST DEGREE AV BLOCK ABNORMAL ECG UNCONFIRMED REPORT Electronically signed by : Gabriel Hong MD 05/09/2023 16:32:53
--- NOTE | 2023-05-09 13:34 | SUR.PHASEII ---
PATIENT HAD EPISODES OF BRADYCARDIA & HEART BLOCK, DR FONG NOTIFIED. PATIENT TO BE ADMITTED FOR FURTHER EVAL.
--- NOTE | 2023-05-09 13:45 | EXP.HP ---
History of Present Illness *Admission Date: 05/09/23 *Reason for visit:: Bradycardia *History of present illness: Mr. Tatum is a 77-year-old male with history of atypical chest pain, dizziness, abnormal EKG. He was brought in electively to the [facility] because of abnormal CCTA showing severe CAD with circumflex and LAD. Normal Myoview stress test in February 06. Has been having lots of PVCs and PACs on recent Holter monitor. Proceeded with left heart cath and found to have critical circumflex disease necessitating stenting. While in recovery, patient developed bradycardia and 2-1 Mobitz heart block. Given his rhythm changes, cardiology requested admission for observation overnight monitoring on telemetry. Would like to reevaluate the patient in the morning. Patient denies any chest pain, shortness of breath, nausea or vomiting. Tolerated procedure well with no other adverse events. No hypotension. History significant for CAD, BPH, ROB, chronic lumbar with the asthma. Cath findings as follows IMPRESSION Severe disease in the proximal dominant circumflex artery with successful stenting reducing the severe to critical stenosis to 0% with 1 drug-eluting stent Moderate disease scattered throughout the proximal and mid LAD as well as a large first diagonal artery as described in full report Normal left ventricular end-diastolic pressure [facility] Disclaimer: The information contained in this section may have been updated after the patient was seen, as this information can be updated by other users. Medical History Abnormal findings on diagnostic imaging of heart and coronary circulation Asthma High cholesterol History of abdominal hernia History of arthritis History of fibromyalgia Nocturnal hypoxemia Surgical History History of rotator cuff surgery Family History Family history of acute heart failure Social History Smoking Status: Former smoker tobacco type: cigarettes smoking status stop date: 30 years ago alcohol intake: current substance use type: denies use current occupational status: employed and retired Travel in the last 8 weeks: None household members: spouse housing: house marital status: Review of Systems Review of Systems Review of systems (narrative): 14 point review of systems performed, pertinent positives and negatives as per HPI Meds Home Medications and Allergies Home Medications Medication Instructions Recorded Confirmed Type acetaminophen 500 mg capsule 500 mg PO Q6H PRN Pain 04/08/23 05/09/23 History amlodipine 2.5 mg tablet 2.5 mg PO DAILY 04/08/23 05/09/23 History losartan 100 mg tablet 100 mg PO DAILY 04/08/23 05/09/23 History omeprazole 20 mg capsule,delayed 20 mg PO BID 04/08/23 05/09/23 History release sildenafil 100 mg tablet See Rx Instructions PO DAILY PRN 04/08/23 05/09/23 History Erectile Dysfunction tamsulosin 0.4 mg capsule 0.4 mg PO HS 05/06/23 05/09/23 History aspirin 81 mg chewable tablet 81 mg PO DAILY #30 tabs 05/09/23 Rx atorvastatin 40 mg tablet (Lipitor) 40 mg PO HS #30 tabs 05/09/23 Rx clopidogrel 75 mg tablet (Plavix) 75 mg PO DAILY #30 tabs 05/09/23 Rx New Prescriptions to Start Prescriptions: aspirin Matthew Perez atorvastatin [Lipitor] Matthew Perez clopidogrel [Plavix] Matthew Perez Allergies Allergy/AdvReac Type Severity Reaction Status Date / Time No Known Allergies Allergy Verified 05/06/23 09:23 Exam Data for Last 24 hours Vital signs and Labs for Last 24 Hours: Temp Pulse Resp BP Pulse Ox O2 Del Method 98.4 F 55 L 17 95/46 L 95 Room Air 05/09/23 11:21 05/09/23 13:00 05/09/23 13:00 05/09/23 13:00 05/09/23 13:00 05/09/23 13:00 Laboratory Results - last 24 hr 05/09/23 10:57: WBC 7.2, RBC 5.28, Hgb 15.5, Hct 47.7, MCV 90.3, MCH 29.4, MCHC 32.6, RDW 13.6, Plt Count 245, MPV 8.0, Neut % (Auto) 58.0, Lymph % (Auto) 31.5, [place] % (Auto) 8.6, Eos % (Auto) 1.4, Baso % (Auto) 0.5, Neut # (Auto) 4.2, Lymph # (Auto) 2.3, [place] # (Auto) 0.6, Eos # (Auto) 0.1, Baso # (Auto) 0.0, Sodium 137, Potassium 4.4, Chloride 108 H, Carbon Dioxide 26, Anion Gap 7.4, BUN 22 H, Creatinine 1.30 H, Estimated Creat Clear 78, Estimated GFR 53 L, Est GFR ( Amer) 65, Glucose 104 H, Calcium 9.1 05/09/23 13:00: Activated Clotting Time 337 H* I & O for Last 24 hours: Intake & Output 05/06/23 05/07/23 05/08/23 05/09/23 23:59 23:59 23:59 23:59 Weight 117.48 kg Constitutional Constitutional: no acute distress, obese and cooperative *Routine HEENT Exam Head: Present normocephalic Eye: Present EOMI and PERRL ENT: Present mucous membranes moist *Routine Neck Exam Neck: Present supple; Absent lymphadenopathy *Routine Respiratory Exam Respiratory: Present CTA bilaterally *Routine Cardiovascular Exam Cardiovascular: Present RRR and bradycardia *Routine Abdominal Exam Abdominal: Present soft and normoactive bowel sounds; Absent tenderness *Routine Rectal Exam Rectal:: deferred *Routine Genitalia Exam Genitalia:: deferred *Routine Extremities Exam Extremities: Absent cyanosis, clubbing or edema Comments: Right radial access clean dry and intact. *Routine Skin Exam Skin: Present warm; Absent rash *Routine Neurological Exam Neurological: Present alert, oriented X3 and moving all extremities; Absent altered mental status Assessment and Plan *Assessment and plan (1) Bradycardia: Status: Acute Category: Medical Code(s): R00.1 - Bradycardia, unspecified (2) CAD (coronary artery disease): Status: Acute Category: Medical Code(s): I25.10 - Atherosclerotic heart disease of squ[place] coronary artery without angina pectoris (3) ROB (obstructive sleep apnea): Status: Suspected Category: Medical Code(s): G47.33 - Obstructive sleep apnea (adult) (pediatric) (4) Chronic lumbar radiculopathy: Status: Suspected Category: Medical Code(s): M54.16 - Radiculopathy, lumbar region (5) Asthma: Status: Acute Category: Medical Code(s): J45.909 - Unspecified asthma, uncomplicated (6) BPH (benign prostatic hyperplasia): Status: Acute Category: Medical Code(s): N40.0 - Benign prostatic hyperplasia without lower urinary tract symptoms Plan 77-year-old male with multiple comorbidities. Presented for elective outpatient left heart cath. Successful stenting of circumflex. Developed bradycardia. Discussed case with cardiology, request admission for observation on telemetry overnight and repeat evaluation in the morning. Medicine agreed to admit. Patient on room air. Denies any chest pain. Problems addressed as follows: CAD Bradycardia Second-degree heart block -Cardiology consulted, appreciate their recommendations. Will monitor on telemetry overnight. -Status post stent to circumflex. Continue aspirin 81 mg daily and Plavix 75 mg daily -Monitor on continuous telemetry - Cardiac rehabilitation, LDL less than 55 to be achieved with high intensity statin -Blood pressure well-controlled, continue home amlodipine 2.5 mg daily, Lipitor 40 nightly, losartan 100 mg daily. CBC normal with no signs of anemia or leukocytosis. CKD: Creatinine 1.3, appears to be patient's baseline. Sodium potassium normal. Repeat CBC, CMP, magnesium ordered for the morning. BPH: Continue tamsulosin 0.4 mg nightly GERD: Continue omeprazole twice daily Full code Cardiac diet Heparinized in the [facility]
[2023-05-09] MEDS: ASPIRIN 325MG TABLET 325 MG PO (13:48)
[2023-05-09] MEDS: CLOPIDOGREL 300MG TABLET 600 MG PO (13:48)
--- NOTE | 2023-05-09 14:20 | HMH.PHAINT1 ---
Pharmacy Intervention Comments: Verified home medication list using documentation from recent office visit summary (05/06/23) and notes for addition of dual anti-platelet therapy (clopidogrel + aspirin) and atorvastatin 40mg during this visit.
--- NOTE | 2023-05-09 14:27 | PC.NURSE ---
pt. on the floor with family.
--- NOTE | 2023-05-09 16:45 | PC.NURSE ---
dressing applied to right wrist c/d/i.
[2023-05-10] VITALS: BP 123/54; PULSE 42; RESP 18; TEMP 36.5; O2SAT 93
[2023-05-10 01:00] VITALS: PULSE 40
[2023-05-10 04:00] VITALS: BP 131/62; PULSE 46; RESP 18; TEMP 36.9; O2SAT 91; BMI 30.3
--- NOTE | 2023-05-10 04:20 | PC.NURSE ---
bradycardic in 40's-50's while sleeping tonight, asymptomatic. RA. right radial site dsg c/d/i, denies soa or CP.
[2023-05-10 06:50] LABS: Basophils % 0.3 % (0.1-2.0); Eosinophils # 0.1 K/mm3 (0.0-0.4); Eosinophils % 1.4 % (0.1-12.0); Hematocrit 38.6 % (42.0-52.0); Hemoglobin 14.7 g/dL (14.1-18.0); Lymphocytes # 2.1 K/mm3 (0.7-4.5); Lymphocytes % 26.3 % (10-50); Mean Corpuscular HGB Conc 38.1 g/dL (31.8-35.4); Mean Corpuscular Hemoglobin 34.9 pg (27.0-31.2); Mean Corpuscular Volume 91.6 fl (80-94); Monocytes # 0.6 K/mm3 (0.1-1.0); Monocytes % 7.9 % (1.7-9.3); Neutrophils % 64.1 % (37.0-80.0); Platelet Count 222 K/mm3 (142-424); Red Blood Count 4.22 M/mm3 (4.60-6.20); Red Cell Distribution Width 13.9 % (11.5-17.5); White Blood Count 7.8 K/mm3 (4.8-10.8)
[2023-05-10 06:59] LABS: Chloride 108 mmol/L (98-107); Potassium 4.2 mmoL/L (3.5-5.1); Sodium 136 mmol/L (136-145)
[2023-05-10 07:01] LABS: Alanine Aminotransferase 31 U/L (12-78); Aspartate Amino Transferase 34 U/L (17-59); Blood Urea Nitrogen 22 mg/dl (9-20); Creatinine Clearance Estimated 81 mL/min (50-200); Estimated Glomerular Filt Rate 59 ml/min (>60); GFR (African American) 71 ML/MIN (>60)
[2023-05-10 07:02] LABS: Albumin Level 3.7 g/dl (3.5-5.0); Albumin/Globulin Ratio 1.2 (1.1-1.8); Alkaline Phosphatase 101 U/L (38-126); Anion Gap 7.2 mEq/L (5-15); Bilirubin,Total 0.4 mg/dl (0.2-1.3); Calcium 8.8 mg/dl (8.4-10.2); Carbon Dioxide 25 mmol/L (22.0-30.0); Globulin 3.1 g/dL (1.3-3.2); Glucose 110 mg/dl (74-100); Magnesium 2.3 mg/dl (1.6-2.3); Total Protein,Serum 6.8 g/dl (6.3-8.2)
[2023-05-10 07:21] VITALS: O2SAT 99
--- NOTE | 2023-05-10 07:42 | EXP.DC.SUM ---
General Admission date:: 05/09/23 Discharge date: 05/10/23 HPI HPI HPI: Mr. Tatum is a 77-year-old male with history of atypical chest pain, dizziness, abnormal EKG. He was brought in electively to the [facility] Experience [facility] because of abnormal CCTA showing severe CAD with circumflex and LAD. Normal Myoview stress test in February 06. Has been having lots of PVCs and PACs on recent Holter monitor. Proceeded with left heart cath and found to have critical circumflex disease necessitating stenting. While in recovery, patient developed bradycardia and 2-1 Mobitz heart block. Given his rhythm changes, cardiology requested admission for observation overnight monitoring on telemetry. Would like to reevaluate the patient in the morning. Patient denies any chest pain, shortness of breath, nausea or vomiting. Tolerated procedure well with no other adverse events. No hypotension. History significant for CAD, BPH, ROB, chronic lumbar with the asthma. Cath findings as follows IMPRESSION Severe disease in the proximal dominant circumflex artery with successful stenting reducing the severe to critical stenosis to 0% with 1 drug-eluting stent Moderate disease scattered throughout the proximal and mid LAD as well as a large first diagonal artery as described in full report Normal left ventricular end-diastolic pressure Hospital Course Hospital Course Hospital Course: 77-year-old male with multiple comorbidities. Presented for elective outpatient left heart cath. Successful stenting of circumflex. Developed bradycardia. Discussed case with cardiology, request admission for observation on telemetry overnight and repeat evaluation in the morning. Medicine agreed to admit. Patient on room air. Denies any chest pain. Monitored overnight on telemetry. Remained bradycardic but in sinus bradycardia. This appears to be normal for patient. No symptoms of chest pain, syncope, dizziness. Stable for discharge home with close follow-up. Cardiology recommends Holter monitor. Problems addressed as follows: CAD Bradycardia First degree heart block -Cardiology consulted, appreciate their recommendations. Monitored on telemetry overnight. Status post stent to his circumflex artery. Continue aspirin and Plavix daily. Patient had sinus bradycardia with first-degree block after heart cath. No other indication for interventions at this time. Recommend Holter monitor and follow-up as an outpatient in the coming weeks with cardiology. Would benefit from cardiac rehab. Recommend LDL goal of less than 55. Initial on Lipitor 40 mg nightly. Blood pressure well-controlled, continue home amlodipine 2.5 mg daily, losartan 100 mg daily. CBC normal with no signs of anemia or leukocytosis. CKD: Creatinine 1.3, appears to be patient's baseline. Sodium potassium normal. BPH: Continue tamsulosin 0.4 mg nightly GERD: Continue omeprazole twice daily Stable for discharge home. Follow-up with cardiology in the next 1 to 2 weeks. Exam Data for Last 24 hours Vital signs and Labs for Last 24 Hours: Temp Pulse Resp BP Pulse Ox O2 Del Method 98.5 F 46 L 18 131/62 99 Room Air 05/10/23 04:00 05/10/23 04:00 05/10/23 04:00 05/10/23 04:00 05/10/23 07:21 05/10/23 07:23 Laboratory Results - last 24 hr 05/09/23 10:57: WBC 7.2, RBC 5.28, Hgb 15.5, Hct 47.7, MCV 90.3, MCH 29.4, MCHC 32.6, RDW 13.6, Plt Count 245, MPV 8.0, Neut % (Auto) 58.0, Lymph % (Auto) 31.5, [place] % (Auto) 8.6, Eos % (Auto) 1.4, Baso % (Auto) 0.5, Neut # (Auto) 4.2, Lymph # (Auto) 2.3, [place] # (Auto) 0.6, Eos # (Auto) 0.1, Baso # (Auto) 0.0, Sodium 137, Potassium 4.4, Chloride 108 H, Carbon Dioxide 26, Anion Gap 7.4, BUN 22 H, Creatinine 1.30 H, Estimated Creat Clear 78, Estimated GFR 53 L, Est GFR ( Amer) 65, Glucose 104 H, Calcium 9.1 05/09/23 13:00: Activated Clotting Time 337 H* 05/10/23 06:40: WBC 7.8, RBC 4.22 L, Hgb 14.7, Hct 38.6 L, MCV 91.6, MCH 34.9 H, MCHC 38.1 H, RDW 13.9, Plt Count 222, MPV 8.0, Neut % (Auto) 64.1, Lymph % (Auto) 26.3, [place] % (Auto) 7.9, Eos % (Auto) 1.4, Baso % (Auto) 0.3, Neut # (Auto) 5.0, Lymph # (Auto) 2.1, [place] # (Auto) 0.6, Eos # (Auto) 0.1, Baso # (Auto) 0.0, Sodium 136, Potassium 4.2, Chloride 108 H, Carbon Dioxide 25, Anion Gap 7.2, BUN 22 H, Creatinine 1.20, Estimated Creat Clear 81, Estimated GFR 59, Est GFR ( Amer) 71, Glucose 110 H, Calcium 8.8, Magnesium 2.3, Total Bilirubin 0.4, AST 34, ALT 31, Alkaline Phosphatase 101, Total Protein 6.8, Albumin 3.7, Globulin 3.1, Albumin/Globulin Ratio 1.2 I & O for Last 24 hours: Intake & Output 05/07/23 05/08/23 05/09/23 05/10/23 23:59 23:59 23:59 23:59 Intake Total 360 / 360 Balance 360 / 360 Weight 113.058 kg 112.945 kg Constitutional Constitutional: no acute distress, obese and cooperative *Routine HEENT Exam Head: Present normocephalic Eye: Present EOMI and PERRL ENT: Present mucous membranes moist *Routine Neck Exam Neck: Present supple; Absent lymphadenopathy *Routine Respiratory Exam Respiratory: Present CTA bilaterally; Absent rhonchi, wheezes or crackles *Routine Cardiovascular Exam Cardiovascular: Present RRR *Routine Abdominal Exam Abdominal: Present soft and normoactive bowel sounds; Absent tenderness *Routine Rectal Exam Patient deferred: visual exam *Routine Exam Patient deferred: penile exam *Routine Extremities Exam Extremities: Present edema (trace ankle); Absent cyanosis or clubbing Comments: right radial approach CDI *Routine Skin Exam Skin: Present warm; Absent rash *Routine Neurological Exam Neurological: Present alert, oriented X3 and moving all extremities; Absent altered mental status Results Data Completed and Pending Labs on day of discharge: Labs from last 24 hours 05/10/23 05/09/23 05/09/23 06:40 13:00 10:57 WBC 7.8 7.2 RBC 4.22 L 5.28 Hgb 14.7 15.5 Hct 38.6 L 47.7 MCV 91.6 90.3 MCH 34.9 H 29.4 MCHC 38.1 H 32.6 RDW 13.9 13.6 Plt Count 222 245 MPV 8.0 8.0 Neut % (Auto) 64.1 58.0 Lymph % (Auto) 26.3 31.5 [place] % (Auto) 7.9 8.6 Eos % (Auto) 1.4 1.4 Baso % (Auto) 0.3 0.5 Neut # (Auto) 5.0 4.2 Lymph # (Auto) 2.1 2.3 [place] # (Auto) 0.6 0.6 Eos # (Auto) 0.1 0.1 Baso # (Auto) 0.0 0.0 Activated Clotting Time 337 H* Sodium 136 137 Potassium 4.2 4.4 Chloride 108 H 108 H Carbon Dioxide 25 26 Anion Gap 7.2 7.4 BUN 22 H 22 H Creatinine 1.20 1.30 H Estimated Creat Clear 81 78 Estimated GFR 59 53 L Est GFR ( Amer) 71 65 Glucose 110 H 104 H Calcium 8.8 9.1 Magnesium 2.3 Total Bilirubin 0.4 AST 34 ALT 31 Alkaline Phosphatase 101 Total Protein 6.8 Albumin 3.7 Globulin 3.1 Albumin/Globulin Ratio 1.2 DS: Diagnosis Discharge Diagnosis (1) Bradycardia: Status: Acute Code(s): R00.1 - Bradycardia, unspecified (2) CAD (coronary artery disease): Status: Acute Code(s): I25.10 - Atherosclerotic heart disease of [place] coronary artery without angina pectoris (3) ROB (obstructive sleep apnea): Status: Suspected Code(s): G47.33 - Obstructive sleep apnea (adult) (pediatric) (4) Chronic lumbar radiculopathy: Status: Suspected Code(s): M54.16 - Radiculopathy, lumbar region (5) Asthma: Status: Acute Code(s): J45.909 - Unspecified asthma, uncomplicated (6) BPH (benign prostatic hyperplasia): Status: Acute Code(s): N40.0 - Benign prostatic hyperplasia without lower urinary tract symptoms Meds Home Medications and Allergies Home Medications Medication Instructions Recorded Confirmed Type acetaminophen 500 mg capsule 500 mg PO Q6H PRN Pain 04/08/23 05/09/23 History amlodipine 2.5 mg tablet 2.5 mg PO DAILY 04/08/23 05/09/23 History losartan 100 mg tablet 100 mg PO DAILY 04/08/23 05/09/23 History omeprazole 20 mg capsule,delayed 20 mg PO BID 04/08/23 05/09/23 History release sildenafil 100 mg tablet See Rx Instructions PO DAILY PRN 04/08/23 05/09/23 History Erectile Dysfunction tamsulosin 0.4 mg capsule 0.4 mg PO HS 05/06/23 05/09/23 History aspirin 81 mg chewable tablet 81 mg PO DAILY #30 tabs 05/09/23 Rx atorvastatin 40 mg tablet (Lipitor) 40 mg PO HS #30 tabs 05/09/23 Rx clopidogrel 75 mg tablet (Plavix) 75 mg PO DAILY #30 tabs 05/09/23 Rx New Prescriptions to Start Prescriptions: aspirin Matthew Perez atorvastatin [Lipitor] Matthew Perez clopidogrel [Plavix] Matthew Perez Allergies Allergy/AdvReac Type Severity Reaction Status Date / Time No Known Allergies Allergy Verified 05/06/23 09:23 Discharge Plan Disposition Patient Disposition: Home, Self-Care Condition: Good Follow up Plan Follow up with: Luis A Oseguera MD [Primary Care Provider] - 05/20/23 9:20 am Matthew Perez MD [Staff Physician] - 05/16/23 8:15 am Prescriptions/Medication Reconciliation: New clopidogrel [Plavix] 75 mg Tablet 75 mg PO DAILY Qty: 30 6RF aspirin 81 mg Tablet,Chewable 81 mg PO DAILY Qty: 30 6RF atorvastatin [Lipitor] 40 mg Tablet 40 mg PO HS Qty: 30 3RF Continued amlodipine 2.5 mg tablet 2.5 mg PO DAILY omeprazole 20 mg capsule,delayed release(DR/EC) 20 mg PO BID losartan 100 mg tablet 100 mg PO DAILY sildenafil 100 mg tablet See Rx Instructions PO DAILY PRN (Reason: Erectile Dysfunction) Rx Instructions: 100mg 1/2 tab orally daily PRN; administer 30 minutes to 4 hours before activity acetaminophen 500 mg capsule 500 mg PO Q6H PRN (Reason: Pain) tamsulosin 0.4 mg capsule 0.4 mg PO HS Patient Comments: TAKE 1 CAPSULE BY MOUTH EVERY DAY AT BEDTIME FOR URINATION Problem Reconciliation Problems Reviewed?: Yes Patient Discharge Instructions ACTIVITY: Continue current activity DIET: continue same diet Patient Instructions: DI for Coronary Stenting, DI for Surgical Site Infection, DI for Moderate Sedation, DI for Post-Surgical Bleeding Providers Primary Care Provider: Luis A Oseguera Admit Provider: Duane Hairston Attending Provider: Duane Hairston
[2023-05-10 08:00] VITALS: BP 143/68; PULSE 46; PULSE 55; RESP 20; TEMP 36.3; O2SAT 96
[2023-05-10] MEDS: CLOPIDOGREL 75MG TAB 75 MG PO (08:13)
[2023-05-10] MEDS: ASPIRIN EC 81MG TABLET 81 MG PO (08:13)
[2023-05-10] MEDS: PANTOPRAZOLE 40MG TABLET 40 MG PO (08:13)
[2023-05-10] MEDS: AMLODIPINE 2.5MG TABLET 2.5 MG PO (08:13)
[2023-05-10] MEDS: IRBESARTAN 150MG TAB 150 MG PO (08:13)
--- NOTE | 2023-05-10 09:06 | ECG_ITS ---
APPROVED REPORT Exam: Resting ECG HR:46 bpm ECG Measurements Heart Rate 46 AXES [place] 283 P 66 QRSd 101 QRS 39 QT 449 T 52 QTc 409 Conclusion SINUS BRADYCARDIA WITH FIRST DEGREE AV BLOCK ABNORMAL ECG UNCONFIRMED REPORT Electronically signed by : Gabriel Hong MD 05/11/2023 12:37:44
--- NOTE | 2023-05-10 11:42 | P.CONCA_ITS ---
History of Present Illness History of Present Illness Consult date: 05/10/23 Requesting physician: Duane Hairston Chief complaint: bradycardia History of present illness: 77-year-old white male recently established patient of our practice for evaluation of bradycardia. He underwent Holter monitoring which showed PACs and PVCs and had CCTA which indicated severe stenosis of his left circumflex artery. He was admitted yesterday as outpatient for elective left heart cath with angiogram plus or minus stenting. He did in fact have severe stenosis of his left circumflex which was stented without complication. In recovery he was noted to have bradycardia with a rate in the 20s and occasional Mobitz type II heart block. He was asymptomatic but admitted overnight for observation. Review of telemetry overnight indicates occasional sinus bradycardia to the 30s around 1:30 AM while he was sleeping. Since he has been awake heart rate has been 40s to 50s or higher and he is asymptomatic. He reports long history of lower heart rate like this but without symptoms. [facility] Disclaimer: The information contained in this section may have been updated after the patient was seen, as this information can be updated by other users. Medical History Abnormal findings on diagnostic imaging of heart and coronary circulation Asthma High cholesterol History of abdominal hernia History of arthritis History of fibromyalgia Nocturnal hypoxemia Surgical History History of rotator cuff surgery Family History Other Family history of acute heart failure Social History Smoking Status: Former smoker tobacco type: cigarettes smoking status stop date: 30 years ago alcohol intake: current substance use type: denies use current occupational status: employed and retired Travel in the last 8 weeks: None household members: spouse housing: house marital status: Review of Systems Constitutional Constitutional: Denies fatigue and Denies weakness Eyes Eyes: Denies loss of vision ENT Ears, Nose, Mouth, and Throat: Denies hearing loss and Denies vertigo *Cardiovascular Cardiovascular: Denies chest pain, Denies dyspnea and Denies syncope *Respiratory Respiratory: Denies cough and Denies dyspnea *Gastrointestinal Gastrointestinal: Denies change in stool character, Denies nausea and Denies vomiting *Genitourinary Genitourinary: Denies difficulty urinating *Musculoskeletal Musculoskeletal: Denies muscle weakness Integumentary/Breasts Skin/Breast: Denies changing lesions *Neurologic Neurologic: Denies loss of vision, Denies syncope, Denies vertigo and Denies weakness Endocrine Endocrine: Denies fatigue Exam Data for Last 24 hours Vital signs and Labs for Last 24 Hours: Temp Pulse Resp BP Pulse Ox O2 Del Method 97.4 F L 46 L 20 143/68 H 96 Room Air 05/10/23 08:00 05/10/23 08:00 05/10/23 08:00 05/10/23 08:00 05/10/23 08:00 05/10/23 10:10 Laboratory Results - last 24 hr 05/09/23 13:00: Activated Clotting Time 337 H* 05/10/23 06:40: WBC 7.8, RBC 4.22 L, Hgb 14.7, Hct 38.6 L, MCV 91.6, MCH 34.9 H, MCHC 38.1 H, RDW 13.9, Plt Count 222, MPV 8.0, Neut % (Auto) 64.1, Lymph % (Auto) 26.3, [place] % (Auto) 7.9, Eos % (Auto) 1.4, Baso % (Auto) 0.3, Neut # (Auto) 5.0, Lymph # (Auto) 2.1, [place] # (Auto) 0.6, Eos # (Auto) 0.1, Baso # (Auto) 0.0, Sodium 136, Potassium 4.2, Chloride 108 H, Carbon Dioxide 25, Anion Gap 7.2, BUN 22 H, Creatinine 1.20, Estimated Creat Clear 81, Estimated GFR 59, Est GFR ( Amer) 71, Glucose 110 H, Calcium 8.8, Magnesium 2.3, Total Bilirubin 0.4, AST 34, ALT 31, Alkaline Phosphatase 101, Total Protein 6.8, Albumin 3.7, Globulin 3.1, Albumin/Globulin Ratio 1.2 I & O for Last 24 hours: Intake & Output 05/07/23 05/08/23 05/09/23 05/10/23 23:59 23:59 23:59 23:59 Intake Total 360 / 360 600 / 600 Balance 360 / 360 600 / 600 Weight 249 lb 4 oz 249 lb Constitutional Constitutional: no acute distress and cooperative *Routine HEENT Exam Eye: Present PERRL *Routine Respiratory Exam Respiratory: Present CTA bilaterally; Absent accessory muscle use, wheezes or crackles *Routine Cardiovascular Exam Cardiovascular: Present RRR, Normal S1, Normal S2 and bradycardia; Absent murmur, gallop or rubs *Routine Abdominal Exam Abdominal: Present soft; Absent tenderness *Routine Extremities Exam Extremities: Present pulses intact; Absent cyanosis or edema *Routine Skin Exam Skin: Present intact; Absent erythema or wounds *Routine Neurological Exam Neurological: Present alert and oriented X3 Routine Psychiatric Exam Psychiatric: Present cooperative Meds Home Medications and Allergies Home Medications Medication Instructions Recorded Confirmed Type acetaminophen 500 mg capsule 500 mg PO Q6H PRN Pain 04/08/23 05/09/23 History amlodipine 2.5 mg tablet 2.5 mg PO DAILY 04/08/23 05/09/23 History losartan 100 mg tablet 100 mg PO DAILY 04/08/23 05/09/23 History omeprazole 20 mg capsule,delayed 20 mg PO BID 04/08/23 05/09/23 History release sildenafil 100 mg tablet See Rx Instructions PO DAILY PRN 04/08/23 05/09/23 History Erectile Dysfunction tamsulosin 0.4 mg capsule 0.4 mg PO HS 05/06/23 05/09/23 History aspirin 81 mg chewable tablet 81 mg PO DAILY #30 tabs 05/09/23 Rx atorvastatin 40 mg tablet (Lipitor) 40 mg PO HS #30 tabs 05/09/23 Rx clopidogrel 75 mg tablet (Plavix) 75 mg PO DAILY #30 tabs 05/09/23 Rx New Prescriptions to Start Prescriptions: aspirin Matthew Perez atorvastatin [Lipitor] Matthew Perez clopidogrel [Plavix] Matthew Perez Allergies Allergy/AdvReac Type Severity Reaction Status Date / Time No Known Allergies Allergy Verified 05/06/23 09:23 Assessment and Plan *Assessment and plan (1) Bradycardia: Status: Acute Category: Medical Code(s): R00.1 - Bradycardia, unspecified (2) CAD (coronary artery disease): Status: Acute Category: Medical Code(s): I25.10 - Atherosclerotic heart disease of [place] coronary artery without angina pectoris (3) ROB (obstructive sleep apnea): Status: Suspected Category: Medical Code(s): G47.33 - Obstructive sleep apnea (adult) (pediatric) (4) Chronic lumbar radiculopathy: Status: Suspected Category: Medical Code(s): M54.16 - Radiculopathy, lumbar region (5) Asthma: Status: Acute Category: Medical Code(s): J45.909 - Unspecified asthma, uncomplicated (6) BPH (benign prostatic hyperplasia): Status: Acute Category: Medical Code(s): N40.0 - Benign prostatic hyperplasia without lower urinary tract symptoms Plan Asymptomatic sinus bradycardia and transient Mobitz type II -Heart rate to 20s under anesthesia post left heart cath -Patient has recovered to his baseline and is asymptomatic with appropriate chronotropic response -He is not on any AV blockers -Thyroid labs normal in March -Pt is agreeable to discharge home with placement of 2-week heart monitor. He can follow-up in our clinic in 2 weeks, call sooner with any symptoms/concerns MV-CAD s/p LCX stent 05/09 - CCS = 0 - Home with DAPT, Statin. No BB due to bradycardia Sleep apnea - dicussed compliance BMI 30 - discussed weight loss CV stable for DC home with plans as outlind above. He needs f/u in our office in 2 weeks. Please advise if we can be of further assistance prior to dischage.
[2023-05-10 12:00] VITALS: PULSE 50
--- NOTE | 2023-05-10 12:47 | PC.NURSE ---
pt. to return to hospital for home heart monitor.
--- NOTE | 2023-05-13 14:38 | CARE MANAGER ---
Called and spoke with patient regarding recent discharge. Patient stated that he is doing well, no concerns voiced at time of call. He was aware of scheduled f/u appts.
== END 2023-05-10 12:32 | disposition home or self-care (01) ==
LOC: 2ND 14:05
PROVIDERS: Internal Medicine; Admitting Provider Internal Medicine Adolescent Medicine; PCP Internal Medicine; Visit Provider Internal Medicine Adolescent Medicine
DX: I25.119 Atherosclerotic heart disease of native coronary artery with unspecified angina pectoris (principal); I49.3 Ventricular premature depolarization; R93.1 Abnormal findings on diagnostic imaging of heart and coronary circulation; R94.31 Abnormal electrocardiogram [ECG] [EKG]; G47.33 Obstructive sleep apnea (adult) (pediatric); M54.16 Radiculopathy, lumbar region; J45.909 Unspecified asthma, uncomplicated; N40.0 Benign prostatic hyperplasia without lower urinary tract symptoms; E78.00 Pure hypercholesterolemia, unspecified; I44.1 Atrioventricular block, second degree
CPT/HCPCS: 36415; 80048; 80053; 83735; 85025; 85347; 92928; 92978; 93005; 93270; 93458; 99152; 99153; C1725; C1760; C1769; C1876; C9600; G0378; J1644; Q9967

== ENCOUNTER 2023-05-13 09:26 | Outpatient (CLI) | payer MEDICARE, SELFPAY ==
[2023-05-13 09:50] LABS: Basophils % 0.3 % (0.1-2.0); Eosinophils # 0.1 K/mm3 (0.0-0.4); Eosinophils % 1.2 % (0.1-12.0); Hematocrit 48.7 % (42.0-52.0); Hemoglobin 16.1 g/dL (14.1-18.0); Lymphocytes # 2.2 K/mm3 (0.7-4.5); Lymphocytes % 28.8 % (10-50); Mean Corpuscular HGB Conc 32.9 g/dL (31.8-35.4); Mean Corpuscular Volume 90.9 fl (80-94); Monocytes # 0.6 K/mm3 (0.1-1.0); Monocytes % 8.1 % (1.7-9.3); Neutrophils # 4.6 K/mm3 (1.8-7.8); Neutrophils % 61.6 % (37.0-80.0); Platelet Count 238 K/mm3 (142-424); Red Blood Count 5.36 M/mm3 (4.60-6.20); Red Cell Distribution Width 13.7 % (11.5-17.5); White Blood Count 7.5 K/mm3 (4.8-10.8)
[2023-05-13 10:17] LABS: Chloride 106 mmol/L (98-107); Potassium 4.7 mmoL/L (3.5-5.1); Sodium 136 mmol/L (136-145)
[2023-05-13 10:19] LABS: Alanine Aminotransferase 32 U/L (12-78); Anion Gap 8.7 mEq/L (5-15); Aspartate Amino Transferase 31 U/L (17-59); Bilirubin,Unconjugated 0.4 mg/dL (0.0-1.1); Blood Urea Nitrogen 34 mg/dl (9-20); Carbon Dioxide 26 mmol/L (22.0-30.0); Estimated Glomerular Filt Rate 49 ml/min (>60); GFR (African American) 59 ML/MIN (>60)
[2023-05-13 10:20] LABS: Albumin Level 4.2 g/dl (3.5-5.0); Alkaline Phosphatase 124 U/L (38-126); Bilirubin,Direct 0.2 mg/dl (0.0-0.4); Bilirubin,Indirect 0.5 mg/dL (0.0-0.9); Bilirubin,Total 0.7 mg/dl (0.2-1.3); Calcium 9.5 mg/dl (8.4-10.2); Chol/HDL Ratio 6.6 (1-3.5); Cholesterol 224 mg/dl (140-200); Glucose 108 mg/dl (74-100); HDL Cholesterol 34 mg/dl (40-60); Total Protein,Serum 7.5 g/dl (6.3-8.2); Triglycerides 206 mg/dl (30-150); VLDL Cholesterol 41 mg/dL (0-40)
[2023-05-13 10:37] LABS: Free T4 (Free Thyroxine) 0.89 ng/dl (0.78-2.19)
[2023-05-13 10:50] LABS: Thyroid Stimulating Hormone 3.68 uIU/mL (0.465-4.68)
== END 2023-05-13 23:59 ==
LOC: LAB 09:27
PROVIDERS: PCP Internal Medicine; Visit Provider Nurse Practitioner Family
DX: I25.10 Atherosclerotic heart disease of native coronary artery without angina pectoris (principal); R06.00 Dyspnea, unspecified; I11.9 Hypertensive heart disease without heart failure; G47.33 Obstructive sleep apnea (adult) (pediatric); K21.9 Gastro-esophageal reflux disease without esophagitis; R07.89 Other chest pain; R94.31 Abnormal electrocardiogram [ECG] [EKG]; E11.9 Type 2 diabetes mellitus without complications
CPT/HCPCS: 36415; 80048; 80061; 80076; 84439; 84443; 85025

== ENCOUNTER → 2023-06-07 15:53 | Outpatient (CLI) | payer MEDICARE, SELFPAY | LOC: SL 15:54 | PROVIDERS: PCP Internal Medicine; Visit Provider Nurse Practitioner Family | DX: G47.33 Obstructive sleep apnea (adult) (pediatric) (principal) | CPT/HCPCS: G0399 ==

== ENCOUNTER 2023-06-10 10:10 | Outpatient (RCR) | payer MEDICARE, SELFPAY | END 2023-09-09 14:00 | disposition home or self-care (01) | LOC: PT 10:10 | PROVIDERS: Visit Provider Internal Medicine | DX: I25.10 Atherosclerotic heart disease of native coronary artery without angina pectoris (principal); Z95.5 Presence of coronary angioplasty implant and graft | CPT/HCPCS: 93798 ==

== ENCOUNTER 2023-06-10 11:06 | Outpatient (CLI) | payer MEDICARE, SELFPAY ==
--- NOTE | 2023-06-10 11:27 | ECG_ITS ---
APPROVED REPORT Exam: Resting ECG HR:54 bpm ECG Measurements Heart Rate 54 AXES MN 273 P -39 QRSd 93 QRS 44 QT 438 T 30 QTc 423 Conclusion SINUS BRADYCARDIA WITH SINUS ARRHYTHMIA WITH FIRST DEGREE AV BLOCK ABNORMAL ECG UNCONFIRMED REPORT Electronically signed by : Gabriel Hong MD 06/10/2023 17:58:24
[2023-06-10 11:52] LABS: Troponin I < 0.01 ng/ml (0.00-0.034)
== END 2023-06-10 23:59 ==
LOC: RT 11:07
PROVIDERS: PCP Internal Medicine; Visit Provider Internal Medicine
DX: R07.9 Chest pain, unspecified (principal)
CPT/HCPCS: 36415; 84484; 93005

== ENCOUNTER 2023-07-15 09:38 | Outpatient (POV) | payer MEDICARE, SELFPAY ==
[2023-07-15 09:57] VITALS: BP 136/62; PULSE 52; RESP 18; TEMP 36.6; O2SAT 99; BMI 31.1
--- NOTE | 2023-07-15 12:43 | EXP.PAIN.OV ---
HPI Data of Consult Patient: new to practice Consult date: 07/15/23 Requesting Physician: Joanne Cuevas APRN Primary Care Provider: Luis A Oseguera MD Consult Narrative Reason for consult: Low back pain, bilateral leg pain History of present illness: Mr. Tatum is a 77 year old male who presents today as a new patient. He is a referral from Dr. Maciel's office. Today he rates his pain a 4 out of 10. Patient states his pain is all in his low back and bilateral lower extremities. He does state this has been going on for years and progressively worsened. He does describe it as an aching, throbbing sensation with numbness and tingling into his extremities. He states pain is worse with increased activity. Patient has tried Tylenol along with heat and ice and topicals with minimal relief. Patient denies any prior back surgery. He does state in the past he has had 2 injections however that following each of these injections he had an episode of incontinence through the night and is unsure if this was related to that or not. Patient has recently completed 6 weeks of physical therapy that just ended last month. He states he is scheduled to start cardiac therapy here soon. He is prescribed gabapentin from his primary care provider. His John has been reviewed and is appropriate. CC: Joanne Cuevas APRN [facility] Disclaimer: The information contained in this section may have been updated after the patient was seen, as this information can be updated by other users. Medical History Hypertension BPH (benign prostatic hyperplasia) CAD (coronary artery disease) ROB (obstructive sleep apnea) Moderate ROB and nocturnal hypoxemia. Decline CPAP therapy. Abnormal findings on diagnostic imaging of heart and coronary circulation Nocturnal hypoxemia History of fibromyalgia History of arthritis High cholesterol History of abdominal hernia Asthma Surgical History Hx of heart artery stent History of rotator cuff surgery Family History Other Family history of acute heart failure Social History Smoking Status: Former smoker tobacco type: cigarettes smoking status stop date: 30 years ago alcohol intake: current alcohol intake frequency: a few times a month substance use type: denies use current occupational status: retired Travel in the last 8 weeks: None household members: spouse housing: house marital status: Review of Systems Review of Systems Review of systems:: pertinent systems reviewed and negative unless documented below Review of systems (narrative): Review of Systems: General: No recent weight changes, no fever, no sleep disturbances Respiratory: No cough, no shortness of air, no recurring pulmonary infections Cardiovascular/peripheral vascular: No chest pain, no palpitations, no edema, no shortness of breath Gastrointestinal: No new onset incontinence, normal bowel movements reported Genitourinary: No new onset incontinence Musculoskeletal: Low back pain, bilateral leg pain Psychiatric: [Normal mood/affect] Neurological: [Denies weakness in extremities], [denies balance issues] Meds Home Medications and Allergies Home Medications Medication Instructions Recorded Confirmed Type acetaminophen 500 mg capsule 500 mg PO Q6H PRN Pain 04/08/23 07/15/23 History amlodipine 2.5 mg tablet 2.5 mg PO DAILY 04/08/23 07/15/23 History losartan 100 mg tablet 100 mg PO DAILY 04/08/23 07/15/23 History omeprazole 20 mg capsule,delayed 20 mg PO BID 04/08/23 07/15/23 History release sildenafil 100 mg tablet See Rx Instructions PO DAILY PRN 04/08/23 07/15/23 History Erectile Dysfunction tamsulosin 0.4 mg capsule 0.4 mg PO HS 05/06/23 07/15/23 History aspirin 81 mg chewable tablet 81 mg PO DAILY #30 tabs 05/09/23 07/15/23 Rx clopidogrel 75 mg tablet (Plavix) 75 mg PO DAILY #30 tabs 05/09/23 07/15/23 Rx atorvastatin 80 mg tablet (Lipitor) 80 mg PO DAILY #30 tabs 07/11/23 07/15/23 Rx furosemide 40 mg tablet 40 mg PO DAILY PRN supplement 07/11/23 07/15/23 History potassium chloride 10 mEq 10 meq PO DAILY 07/11/23 07/15/23 History capsule,extended release New Prescriptions to Start Prescriptions: Allergies Allergy/AdvReac Type Severity Reaction Status Date / Time No Known Allergies Allergy Verified 07/11/23 13:04 Objective Vital signs: Temp Pulse Resp BP Pulse Ox O2 Del Method 97.8 F 52 L 18 136/62 99 Room Air 07/15/23 09:57 07/15/23 09:57 04/29/24 09:57 07/15/23 09:57 07/15/23 09:57 07/15/23 09:57 Narrative: Physical Exam: General: Alert and oriented x3, no acute distress, pleasant and cooperative Lungs: Respirations even and unlabored, symmetrical chest expansion Eyes: PERRL Musculoskeletal: Flexion and extension of lumbar [spine] somewhat guarded secondary to pain, [antalgic gait noted] Neurological: Speech clear, no gross sensory deficit Additional findings Additional findings: FINDINGS: Multiplanar MR imaging of the lumbar spine was performed without contrast. On the sagittal T2-weighted images, there is abnormal decreased signal throughout the lumbar discs. Endplate reactive change is present at the L4-5 and L5-S1 levels. The vertebrae are of normal height. The vertebral alignment is normal. T12-L1: There is no significant canal stenosis or neural foraminal narrowing. L1-2: A small annular bulge is present with mild bilateral neural foraminal narrowing. L2-3: A small annular bulge is present with posterolateral disc protrusions, producing mild canal stenosis and mild to moderate bilateral neural foraminal narrowing. L3-4: A moderate annular bulge is present with posterolateral disc protrusions, with moderate canal stenosis, moderate to severe bilateral neural foraminal narrowing, greater on the right side than the left. L4-5: A small annular bulge is present with endplate hypertrophy and moderate bilateral neural foraminal narrowing. L5-S1: There is a moderate annular bulge present with endplate hypertrophy, with moderate right and severe left neural foraminal narrowing. IMPRESSION: Multilevel lumbar degenerative change as described, most severe at the L3-4 and L5-S1 levels as described. Reviewed, Interpreted and Dictated by Chance Gomez MD Transcribed by Basilia Dunn Authenticated and . 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 Status: Chronic Category: Medical Code(s): M54.16 - Radiculopathy, lumbar region (2) Degenerative disc disease, lumbar: Status: Acute Category: Medical Code(s): M51.36 - Other intervertebral disc degeneration, lumbar region (3) Lumbar spinal stenosis: Status: Acute Qualifiers: Neurogenic claudication status: with neurogenic claudication Qualified Code(s): M48.062 - Spinal stenosis, lumbar region with neurogenic claudication Category: Medical Code(s): M48.061 - Spinal stenosis, lumbar region without neurogenic claudication Plan Patient is experiencing significant pain in his low back and legs with limited range of motion of his lumbar spine. I have discussed with the patient that he may benefit from a lumbar epidural steroid injection. I have spoke at length regarding the episodes of incontinence he experienced with the 2 other injections he had gotten and have explained that we cannot guarantee this was related to the injections or guarantee that this might not happen again. Risk and benefits of the lumbar epidural were explained to the patient and at this time we will wait. I will order the patient a compounded cream and have him follow-up in 2 weeks. Patient will return to clinic in 2 weeks for reevaluation of symptoms and plan of care. Patient has been instructed to contact the clinic with any concerns before the next appointment. Dr. Adame has reviewed this note and agrees with this plan of care. This note was dictated using voice recognition software and make contain errors or omissions.
== END 2023-07-15 23:59 | disposition home or self-care (01) ==
LOC: SC.PAIN 09:39
PROVIDERS: PCP Internal Medicine; Visit Provider Nurse Practitioner Family
DX: M48.062 Spinal stenosis, lumbar region with neurogenic claudication; M47.26 Other spondylosis with radiculopathy, lumbar region; M51.16 Intervertebral disc disorders with radiculopathy, lumbar region
CPT/HCPCS: 99202; G0463

== ENCOUNTER 2023-07-29 09:27 | Outpatient (POV) | payer MEDICARE, SELFPAY ==
[2023-07-29 09:42] VITALS: BP 145/71; PULSE 68; RESP 18; O2SAT 96; BMI 31.1
--- NOTE | 2023-07-29 10:21 | EXP.PAIN.SOA ---
[facility] Pain Management SOAP Note Subjective:: Patient is a pleasant 77-year-old male who presents today for follow-up. Today he rates his pain a 9 out of 10. Patient states he is having worsening pain. He has bilateral lower extremities. He denies any new trauma or injury. He states he really did not notice much improvement with the compounded cream. He states he is planning on making some follow-up appointments with neurosurgeons to see his surgical options. Patient is prescribed gabapentin. His John has been reviewed and is appropriate. Review of Systems: General: No recent weight changes, no fever, no sleep disturbances Respiratory: No cough, no shortness of air, no recurring pulmonary infections Cardiovascular/peripheral vascular: No chest pain, no palpitations, no edema, no shortness of breath Gastrointestinal: No new onset incontinence, normal bowel movements reported Genitourinary: No new onset incontinence Musculoskeletal: Low back pain, bilateral leg pain Psychiatric: [Normal mood/affect] Neurological: [Denies weakness in extremities], [denies balance issues] Objective:: Physical Exam: General: Alert and oriented x3, no acute distress, pleasant and cooperative Lungs: Respirations even and unlabored, symmetrical chest expansion Eyes: PERRL Musculoskeletal: Flexion and extension of lumbar [spine] somewhat guarded secondary to pain, [antalgic gait noted] Neurological: Speech clear, no gross sensory deficit Assessment:: Degenerative disc disease of lumbar spine with lumbar radiculopathy symptoms, lumbar spinal stenosis Plan:: I have discussed with patient due to his continued pain in his low back and legs that he still may benefit from a lumbar epidural or possible spinal cord stimulator trial in the future. Patient states where he had previous episodes of incontinence with lumbar epidurals in the past he is not interested in this option. I have discussed with the patient that he can always let us know if this changes. I will send in a 5-day dose of prednisone 20 mg twice a day for 5 days. We will follow-up with him in 1 month after he has consulted with neurosurgery for reevaluation of symptoms and plan of care. Patient has been instructed to contact the clinic with any concerns before the next appointment. Dr. Adame has reviewed this note and agrees with this plan of care. This note was dictated using voice recognition software and make contain errors or omissions. [facility] Disclaimer: The information contained in this section may have been updated after the patient was seen, as this information can be updated by other users. Medical History Hypertension BPH (benign prostatic hyperplasia) CAD (coronary artery disease) ROB (obstructive sleep apnea) Moderate ROB and nocturnal hypoxemia. Decline CPAP therapy. Abnormal findings on diagnostic imaging of heart and coronary circulation Nocturnal hypoxemia History of fibromyalgia History of arthritis High cholesterol History of abdominal hernia Asthma Surgical History Hx of heart artery stent History of rotator cuff surgery Family History Other Family history of acute heart failure Social History Smoking Status: Former smoker tobacco type: cigarettes smoking status stop date: 30 years ago alcohol intake: current alcohol intake frequency: a few times a month substance use type: denies use current occupational status: retired Travel in the last 8 weeks: None household members: spouse housing: house marital status:
== END 2023-07-29 23:59 | disposition home or self-care (01) ==
PROVIDERS: PCP Internal Medicine; Visit Provider Nurse Practitioner Family
DX: M51.16 Intervertebral disc disorders with radiculopathy, lumbar region (principal); M48.061 Spinal stenosis, lumbar region without neurogenic claudication
CPT/HCPCS: 99212; G0463

== ENCOUNTER 2023-08-26 13:26 | Emergency (ER) | payer MEDICARE, SELFPAY ==
--- NOTE | 2023-08-26 13:43 | XR_ITS ---
FINAL REPORT CLINICAL HISTORY: Acute cough, SOA COMPARISON: 12/29/2021 FINDINGS: Two views of the chest were obtained. The heart size and pulmonary vascularity are within normal limits. The mediastinum is normal. There are new mild bibasilar opacities favored to represent atelectasis over pneumonia. There is no pneumothorax. The bony thorax is intact. IMPRESSION: Bibasilar opacities are favored to represent atelectasis over pneumonia. Reviewed, Interpreted and Dictated by Sam Fonseca III, MD Transcribed by Nani Lopez Authenticated and [facility]
[2023-08-26 13:45] VITALS: BP 105/63; PULSE 57; RESP 20; TEMP 36.8; O2SAT 94; BMI 29.9
--- NOTE | 2023-08-26 13:57 | ECG_ITS ---
APPROVED REPORT Exam: Resting ECG HR:50 bpm ECG Measurements Heart Rate 50 AXES QRSd 90 QRS 62 QT 433 T 74 QTc 407 Conclusion Sinus rhythm with second-degree AV block with intermittent PVC. Electronically signed by : BHARAT PEREZ, 08/27/2023 20:21:15
--- NOTE | 2023-08-26 13:58 | ECG_ITS ---
APPROVED REPORT Exam: Resting ECG HR:58 bpm ECG Measurements Heart Rate [address] 248 P -51 QRSd 92 QRS 64 QT 435 T 76 QTc 433 Conclusion SINUS BRADYCARDIA WITH FIRST DEGREE AV BLOCK WITH FREQUENT VENTRICULAR PREMATURE COMPLEXES ABNORMAL ECG Electronically signed by : BHARAT PEREZ, 08/27/2023 20:19:48
--- NOTE | 2023-08-26 14:04 | EXP.UTC ---
Discharge Plan Disposition Patient Disposition: Still a Patient Condition: Fair Prescriptions Prescriptions: No Action amlodipine 2.5 mg tablet 2.5 mg PO DAILY omeprazole 20 mg capsule,delayed release(DR/EC) 20 mg PO BID losartan 100 mg tablet 100 mg PO DAILY sildenafil 100 mg tablet See Rx Instructions PO DAILY PRN (Reason: Erectile Dysfunction) Rx Instructions: 100mg 1/2 tab orally daily PRN; administer 30 minutes to 4 hours before activity acetaminophen 500 mg capsule 500 mg PO Q6H PRN (Reason: Pain) tamsulosin 0.4 mg capsule 0.4 mg PO HS Patient Comments: TAKE 1 CAPSULE BY MOUTH EVERY DAY AT BEDTIME FOR URINATION furosemide 40 mg tablet 40 mg PO DAILY PRN (Reason: supplement) Patient Comments: TAKE 1 TO 2 TABLETS BY MOUTH IN THE MORNING NEEDED potassium chloride 10 mEq capsule, extended release 10 meq PO DAILY Patient Comments: TAKE 2 CAPSULES BY MOUTH EVERY MORNING WITH FUROSEMIDE FOR 30 DAYS atorvastatin [Lipitor] 80 mg tablet 80 mg PO DAILY Qty: 30 2RF gabapentin 300 mg capsule 300 mg PO HS Qty: 30 2RF trazodone 50 mg tablet 50 mg PO HS PRN (Reason: sleep) Qty: 30 0RF tramadol 50 mg tablet 50 mg PO Q6H MDD 4 PRN (Reason: pain) Qty: 90 0RF clopidogrel [Plavix] 75 mg Tablet 75 mg PO DAILY Qty: 30 6RF aspirin 81 mg Tablet,Chewable 81 mg PO DAILY Qty: 30 6RF prednisone 20 mg tablet 20 mg PO BID Qty: 10 0RF Referrals Follow up/Referrals: Luis A Oseguera MD [Primary Care Provider] - See instructions Clinical Impressions Clinical Impression: Chest pain Discharge ED Provider: Guido Polk [facility] General Stated complaint: dizziness, SOA, chest pain at times Time Seen by Provider: 08/26/23 14:04 History of Present Illness Provider Complaint: He states that over the past approximate 1 week he has had periods of light headedness, dizziness, and feeling like he is going to pass out. He has had worsening shortness of breath and episodes of left sided chest pain also. He does have a history of CAD. He sees Dr. Perez for cardiology. Related Data Home Medications Medication Instructions Recorded Confirmed acetaminophen 500 mg capsule 500 mg PO Q6H PRN Pain 04/08/23 07/29/23 amlodipine 2.5 mg tablet 2.5 mg PO DAILY 04/08/23 07/29/23 losartan 100 mg tablet 100 mg PO DAILY 04/08/23 07/29/23 omeprazole 20 mg capsule,delayed 20 mg PO BID 04/08/23 07/29/23 release sildenafil 100 mg tablet See Rx Instructions PO DAILY PRN 04/08/23 07/29/23 Erectile Dysfunction tamsulosin 0.4 mg capsule 0.4 mg PO HS 05/06/23 07/29/23 furosemide 40 mg tablet 40 mg PO DAILY PRN supplement 07/11/23 07/29/23 potassium chloride 10 mEq 10 meq PO DAILY 07/11/23 07/29/23 capsule,extended release Previous Rx's Medication Instructions Recorded aspirin 81 mg chewable tablet 81 mg PO DAILY #30 tabs 05/09/23 clopidogrel 75 mg tablet (Plavix) 75 mg PO DAILY #30 tabs 05/09/23 atorvastatin 80 mg tablet (Lipitor) 80 mg PO DAILY #30 tabs 07/11/23 prednisone 20 mg tablet 20 mg PO BID #10 tabs 07/29/23 gabapentin 300 mg capsule 300 mg PO HS #30 caps 08/02/23 trazodone 50 mg tablet 50 mg PO HS PRN sleep #30 tabs 08/16/23 tramadol 50 mg tablet 50 mg PO Q6H PRN pain #90 tabs 08/20/23 Allergies Allergy/AdvReac Type Severity Reaction Status Date / Time No Known Allergies Allergy Verified 08/26/23 14:39 [facility] Disclaimer: The information contained in this section may have been updated after the patient was seen, as this information can be updated by other users. Medical History Atherosclerotic heart disease of [place] coronary artery without angina pectoris BPH loc w urin obs/LUTS Ataxia Benign essential HTN Hyperlipidemia Unspecified kidney failure Allergic rhinitis, unspecified Primary insomnia Hypertension BPH (benign prostatic hyperplasia) CAD (coronary artery disease) ROB (obstructive sleep apnea) Moderate ROB and nocturnal hypoxemia. Decline CPAP therapy. Abnormal findings on diagnostic imaging of heart and coronary circulation Nocturnal hypoxemia History of fibromyalgia History of arthritis High cholesterol History of abdominal hernia Asthma Surgical History S/P angioplasty with stent Hx of heart artery stent History of rotator cuff surgery Family History Other Family history of acute heart failure Social History Smoking Status: Former smoker tobacco type: cigarettes smoking status stop date: 30 years ago alcohol intake: current alcohol intake frequency: a few times a month substance use type: denies use current occupational status: retired Travel in the last 8 weeks: None household members: spouse housing: house marital status: ROS Obtained: Yes All systems reviewed & no additional complaints except as documented Constitutional Constitutional: Denies chills and Denies fever(s) Eyes Eyes: Denies eye discharge ENT Ears, Nose, Mouth, and Throat: Denies dizziness, Denies otalgia and Denies sore throat Cardiovascular Cardiovascular: Reports as per HPI and Reports chest pain Respiratory Respiratory: Reports shortness of breath, Denies chest congestion, Denies cough, Denies stridor and Denies wheezing Gastrointestinal Gastrointestingal: Denies nausea or vomiting Musculoskeletal Musculoskeletal: Reports system reviewed and no additional complaints, except as documented and Denies arthralgias Integumentary/Breasts Skin/Breast: Denies rash Neurologic Neurologic: Denies dizziness and Denies paresthesias Allergic/Immunologic Allergic/Immunologic: Denies wheezing Physical Exam General General appearance: alert and in no apparent distress Head Head exam: atraumatic, normocephalic and normal inspection Eye Eye exam: Present normal appearance, PERRL and EOMI ENT ENT exam: Present normal exam, normal oropharynx, mucous membranes moist, TM's normal bilaterally and normal external ear exam Neck Neck exam: Present normal inspection, full ROM and trachea midline; Absent meningismus or lymphadenopathy Chest Chest inspection: Present normal inspection and symmetric chest wall rise; Absent tenderness Respiratory Respiratory exam: Present normal lung sounds bilaterally; Absent respiratory distress Cardiovascular Cardiovascular exam: Present regular rate and normal rhythm; Absent JVD Abdominal Exam Abdominal exam: Present soft and normal bowel sounds; Absent distention, tenderness or guarding Extremities Exam Extremities exam: Present normal inspection, full ROM and normal capillary refill; Absent calf tenderness Back Exam Back exam: Present normal inspection; Absent tenderness Neurological Exam Neurological exam: Present alert and oriented X3 Psychiatric Psychiatric exam: Present normal affect and normal mood Skin Skin exam: Present warm, dry, intact and normal color Lymphatic Lymphatic Findings: no adenopathy Medical Decision Making Medical Records Medical records reviewed: Yes I reviewed the patient's medical records. John Inquiry Pt receiving controlled substance: No Orders (Tests/Meds): ORDERS Category Date Time Status Chest XR 2 view (NOT portable) [XR chest 2V] Stat Exams 08/26/23 13:43 Ordered Medical Decision Narrative: He was transferred to the ER due to his chest pain with history of CAD.
[2023-08-26 14:50] VITALS: BP 132/79; PULSE 52; RESP 18; TEMP 36.7; O2SAT 95; BMI 29.9
[2023-08-26 15:00] VITALS: BP 132/79; PULSE 64; RESP 22; O2SAT 95
--- NOTE | 2023-08-26 15:15 | PC.NURSE ---
DR PEREZ AT BEDSIDE
--- NOTE | 2023-08-26 15:23 | PC.NURSE ---
PT seen by
--- NOTE | 2023-08-26 15:28 | PC.NURSE ---
RESPIRATORY NOTIFIED OF HOLTER MONITOR ORDER
--- NOTE | 2023-08-26 15:28 | HMH.EDCP ---
Discharge Plan Disposition Patient Disposition: Home, Self-Care Condition: Fair Prescriptions Prescriptions: No Action amlodipine 2.5 mg tablet 2.5 mg PO DAILY omeprazole 20 mg capsule,delayed release(DR/EC) 20 mg PO BID losartan 100 mg tablet 100 mg PO DAILY sildenafil 100 mg tablet See Rx Instructions PO DAILY PRN (Reason: Erectile Dysfunction) Rx Instructions: 100mg 1/2 tab orally daily PRN; administer 30 minutes to 4 hours before activity acetaminophen 500 mg capsule 500 mg PO Q6H PRN (Reason: Pain) tamsulosin 0.4 mg capsule 0.4 mg PO HS Patient Comments: TAKE 1 CAPSULE BY MOUTH EVERY DAY AT BEDTIME FOR URINATION furosemide 40 mg tablet 40 mg PO DAILY PRN (Reason: supplement) Patient Comments: TAKE 1 TO 2 TABLETS BY MOUTH IN THE MORNING NEEDED potassium chloride 10 mEq capsule, extended release 10 meq PO DAILY Patient Comments: TAKE 2 CAPSULES BY MOUTH EVERY MORNING WITH FUROSEMIDE FOR 30 DAYS atorvastatin [Lipitor] 80 mg tablet 80 mg PO DAILY Qty: 30 2RF gabapentin 300 mg capsule 300 mg PO HS Qty: 30 2RF trazodone 50 mg tablet 50 mg PO HS PRN (Reason: sleep) Qty: 30 0RF tramadol 50 mg tablet 50 mg PO Q6H MDD 4 PRN (Reason: pain) Qty: 90 0RF clopidogrel [Plavix] 75 mg Tablet 75 mg PO DAILY Qty: 30 6RF aspirin 81 mg Tablet,Chewable 81 mg PO DAILY Qty: 30 6RF prednisone 20 mg tablet 20 mg PO BID Qty: 10 0RF Referrals Follow up/Referrals: Luis A Oseguera MD [Primary Care Provider] - See instructions Matthew Perez MD [Staff Physician] - See instructions Activity Restrictions/Add. Instructions Additional Instructions/Restrictions: At this time it was felt you are safe to be discharged home. If new or worsening symptoms please do not hesitate to return the emergency department. Please call and schedule appoint with Dr. Perez as soon as you are able. Your formal echocardiogram has been conducted here but will be read over the coming day or so and should be ready by the time you follow-up with them. Clinical Impressions Clinical Impression: Breath shortness, Dizziness Discharge ED Provider: Gabino Ford [facility] General Chief Complaint: Shortness of Breath/Dyspnea Stated Complaint: dizziness, SOA, chest pain at times Time Seen by Provider: 08/26/23 14:04 Mode of Arrival: Wheelchair Source of Information: Patient Limitations: No Limitations Description of Symptoms (Recalled from ER Triage Doc. by RN): PT REPORTS INCREASED SHORTNESS OF BREATH AND DIZZINESS FOR ABOUT 2 MONTHS History of Present Illness HPI narrative: Patient is a 77-year-old male with past medical history of obstructive sleep apnea, hypertension, hyperlipidemia, coronary artery disease status post stenting who presents emergency department for evaluation of shortness of breath and dizziness. With expected dizziness has been going on and off for approximately 1 year, nonspecific, worse with ambulation. No true syncope. No trauma. With respect shortness of breath this is chronic as well over many months however has gotten progressively worse and the amount of steps that he can take without becoming short of breath have become increasingly few over the last month. No chest pain on my evaluation. He states he was previously on water pills however is not taking any currently. Related Data Home Medications Medication Instructions Recorded Confirmed acetaminophen 500 mg capsule 500 mg PO Q6H PRN Pain 04/08/23 07/29/23 amlodipine 2.5 mg tablet 2.5 mg PO DAILY 04/08/23 07/29/23 losartan 100 mg tablet 100 mg PO DAILY 04/08/23 07/29/23 omeprazole 20 mg capsule,delayed 20 mg PO BID 04/08/23 07/29/23 release sildenafil 100 mg tablet See Rx Instructions PO DAILY PRN 04/08/23 07/29/23 Erectile Dysfunction tamsulosin 0.4 mg capsule 0.4 mg PO HS 05/06/23 07/29/23 furosemide 40 mg tablet 40 mg PO DAILY PRN supplement 07/11/23 07/29/23 potassium chloride 10 mEq 10 meq PO DAILY 07/11/23 07/29/23 capsule,extended release Previous Rx's Medication Instructions Recorded aspirin 81 mg chewable tablet 81 mg PO DAILY #30 tabs 05/09/23 clopidogrel 75 mg tablet (Plavix) 75 mg PO DAILY #30 tabs 05/09/23 atorvastatin 80 mg tablet (Lipitor) 80 mg PO DAILY #30 tabs 07/11/23 prednisone 20 mg tablet 20 mg PO BID #10 tabs 07/29/23 gabapentin 300 mg capsule 300 mg PO HS #30 caps 08/02/23 trazodone 50 mg tablet 50 mg PO HS PRN sleep #30 tabs 08/16/23 tramadol 50 mg tablet 50 mg PO Q6H PRN pain #90 tabs 08/20/23 Allergies Allergy/AdvReac Type Severity Reaction Status Date / Time No Known Allergies Allergy Verified 08/26/23 14:39 [facility] Disclaimer: The information contained in this section may have been updated after the patient was seen, as this information can be updated by other users. Medical History Atherosclerotic heart disease of [place] coronary artery without angina pectoris BPH loc w urin obs/LUTS Ataxia Benign essential HTN Hyperlipidemia Unspecified kidney failure Allergic rhinitis, unspecified Primary insomnia Hypertension BPH (benign prostatic hyperplasia) CAD (coronary artery disease) ROB (obstructive sleep apnea) Moderate ROB and nocturnal hypoxemia. Decline CPAP therapy. Abnormal findings on diagnostic imaging of heart and coronary circulation Nocturnal hypoxemia History of fibromyalgia History of arthritis High cholesterol History of abdominal hernia Asthma Surgical History S/P angioplasty with stent Hx of heart artery stent History of rotator cuff surgery Family History Other Family history of acute heart failure Social History Smoking Status: Former smoker tobacco type: cigarettes smoking status stop date: 30 years ago alcohol intake: current alcohol intake frequency: a few times a month substance use type: denies use current occupational status: retired Travel in the last 8 weeks: None household members: spouse housing: house marital status: ROS Obtained: Yes Systems reviewed as appropriate & no additional complaints except as documented Physical Exam General General appearance: alert and in no apparent distress Head Head exam: atraumatic and normocephalic Eye Eye exam: Present PERRL and EOMI ENT ENT exam: Present mucous membranes moist Neck Neck exam: Present normal inspection Chest Chest inspection: Present normal inspection and symmetric chest wall rise Respiratory Respiratory exam: Present normal lung sounds bilaterally; Absent respiratory distress Cardiovascular Cardiovascular exam: Present regular rate and normal rhythm Abdominal Exam Abdominal exam: Present soft; Absent tenderness Extremities Exam Extremities exam: Present normal inspection and other (No pitting edema BLE) Neurological Exam Neurological exam: Present alert Psychiatric Psychiatric exam: Present normal affect Skin Skin exam: Present warm and dry HEART Score HEART Score HEART Score assessment performed?: Yes History (anamnesis): Slightly suspicious ECG: Non-specific disturbance Age: >65 years Risk factors: Atherosclerosis history Troponin: </= normal limit HEART Score: 5 Critical Care Critical Care Time Critical Care Time: No Medical Decision Making John Inquiry Pt receiving controlled substance: No Vital Signs Vital Signs: 08/26/23 13:45 08/26/23 14:50 08/26/23 15:00 Temperature 98.3 F 98.0 F Temperature Source Oral Oral Pulse Rate 64 Pulse Rate [Right Radial] 57 L 52 L Respiratory Rate 20 18 22 Blood Pressure 132/79 Blood Pressure [Right Arm] 105/63 L 132/79 Blood Pressure Mean [Right Arm] 77 96 Blood Pressure Source [Right Arm] Automatic Cuff Automatic Cuff Blood Pressure Position [Right Arm] Sitting Sitting 02 Sat by Pulse Oximetry 94 L 95 95 Oxygen Delivery Method Room Air Room Air 08/26/23 15:30 Temperature Temperature Source Pulse Rate 35 L Pulse Rate [Right Radial] Respiratory Rate 16 Blood Pressure 130/60 Blood Pressure [Right Arm] Blood Pressure Mean [Right Arm] Blood Pressure Source [Right Arm] Blood Pressure Position [Right Arm] 02 Sat by Pulse Oximetry 92 L Oxygen Delivery Method Room Air Lab Data Labs: Lab Results 08/26/23 15:05: WBC 6.4, RBC 4.63, Hgb 13.8 L, Hct 42.2, MCV 91.3, MCH 29.7, MCHC 32.6, RDW 14.4, Plt Count 288, MPV 8.0, Neut % (Auto) 62.3, Lymph % (Auto) 24.7, Izard % (Auto) 9.9 H, Eos % (Auto) 2.0, Baso % (Auto) 1.1, Neut # (Auto) 4.0, Lymph # (Auto) 1.6, Izard # (Auto) 0.6, Eos # (Auto) 0.1, Baso # (Auto) 0.1, Sodium 137, Potassium 4.4, Chloride 103, Carbon Dioxide 28, Anion Gap 10.4, BUN 23 H, Creatinine 1.40 H, Estimated Creat Clear 67, Estimated GFR 49 L, Est GFR ( Amer) 59, Glucose 102 H, Calcium 9.1, Total Bilirubin 0.5, AST 35, ALT 31, Alkaline Phosphatase 111, Troponin I < 0.01, NT-Pro-B Natriuret Pep 391, Total Protein 6.6, Albumin 3.8, Globulin 2.8, Albumin/Globulin Ratio 1.4 08/26/23 15:43: VBG pH 7.34, VBG pCO2 49.4, VBG pO2 34.9, VBG HCO3 25.9, VBG Total CO2 27.5 H, VBG O2 Saturation 66.1, VBG Base Excess 0.1, VBG Lactic Acid 1.4 08/26/23 15:05 08/26/23 15:05 Response Orders (Tests/Meds): ORDERS Category Date Time Status Chest XR 2 view (NOT portable) [XR chest 2V] Stat Exams 08/26/23 13:43 Completed BNP [NT Pro Brain Natriuretic Pep.] Stat Lab 08/26/23 15:05 Completed CBC w/Auto Diff [Complete Blood Count Auto Diff] Stat Lab 08/26/23 15:05 Completed CMP [Comprehensive Metabolic Panel] Stat Lab 08/26/23 15:05 Completed Trop I [Troponin I] Stat Lab 08/26/23 15:05 Completed Troponin I Q3H Lab 08/26/23 18:30 Ordered Troponin I Q3H Lab 08/26/23 21:30 Ordered VBG [Venous Blood Gas] Stat RT 08/26/23 15:43 Completed CA echo doppler complete Stat Y 08/26/23 15:39 Completed ECG holter initial pfn Stat Y 08/26/23 15:38 Completed ECG Data Tracing #1: ECG Narrative: Independently interpreted by me, rate is 58, rhythm is irregular, intermittent bigeminy, 6 prolonged MN interval 248, QTc 433, no ST elevation in anatomical contiguous leads. Sinus rhythm with intermittent bigeminy and first-degree AV block. MDM Narrative Medical Decision Narrative: In summary patient is a 77-year-old male with past medical history described above who presents emergency department for evaluation of shortness of breath and dizziness that is chronic. Patient is hemodynamically stable nontoxic-appearing upon arrival, afebrile. No reports of chest pain. I suspect patient has some degree of heart failure causing his symptoms. Although he was a previous smoker his lungs are clear to auscultation. Workup will be conducted with hematologic labs, chest x-ray, EKG, troponin, echo. Initial workup reviewed by me, hematologic labs are nonactionable, compensated acid-base status, stable CKD, no ROM, initial troponin undetectably low. Chest x-ray shows bibasilar opacities favored to be atelectasis which I agree with. Holter monitor was fitted and echo was conducted to facilitate further workup. Patient will be referred to Dr. Perez for continued evaluation.
[2023-08-26 15:30] VITALS: BP 130/60; PULSE 54; RESP 16; O2SAT 92
[2023-08-26 15:31] LABS: Basophils # 0.1 K/mm3 (0-0.2); Basophils % 1.1 % (0.1-2.0); Eosinophils # 0.1 K/mm3 (0.0-0.4); Hematocrit 42.2 % (42.0-52.0); Hemoglobin 13.8 g/dL (14.1-18.0); Lymphocytes # 1.6 K/mm3 (0.7-4.5); Lymphocytes % 24.7 % (10-50); Mean Corpuscular HGB Conc 32.6 g/dL (31.8-35.4); Mean Corpuscular Hemoglobin 29.7 pg (27.0-31.2); Mean Corpuscular Volume 91.3 fl (80-94); Monocytes # 0.6 K/mm3 (0.1-1.0); Monocytes % 9.9 % (1.7-9.3); Neutrophils % 62.3 % (37.0-80.0); Platelet Count 288 K/mm3 (142-424); Red Blood Count 4.63 M/mm3 (4.60-6.20); Red Cell Distribution Width 14.4 % (11.5-17.5); White Blood Count 6.4 K/mm3 (4.8-10.8)
--- NOTE | 2023-08-26 15:39 | CA_ITS ---
APPROVED REPORT EXAM: Comprehensive 2D, Doppler, and color-flow Echocardiogram Mold Washer: Anh Kearney RVT Ht: 6 ft 3 in Wt: 240lbs BSA: 2.37 BP: 130/60 mmHg Indications: SOA,CP,HTN,HLD,CAD,ROB,EX SMOKER TDS-LIMITED WINDOWS 2D Dimensions IVSd 0.80 cm M: 0.6-1.2 LVEF (Visual) 59.90 % PWd 0.75 cm M: 0.6 - 1.2 LA Volume 74.10 mL LVDd 5.92 cm M: 4.2 - 5.9 LA Volume Index 31.27 mL/m2 (M/F) 16-34 LVDs 4.00 cm M: 2.5 - 4.0 M-Mode Dimensions RVDd 2.55 cm (0.9-2.6) LA Diam 3.79 cm (1.9-4.0) LVDd 6.88 cm (3.5-5.7) IVSd 0.36 cm (0.6-1.1) PWd 0.63 cm (0.6-1.1) EDV (Teich) 245.60 mL TAPSE 3.40 (<1.7) LV Diastology E Decel Time 217 (160-240 msec) E/A Ratio 2.7 Aortic Valve AoV Peak Kenny. 115.0 (50-130 cm/s) AO Peak GR. 5.30 mmHg AO Mean GR. 2.80 (<5 mmHg) AO VTI 29.7 (18-25 cm) GARO (VTI) 4.29 (2.5-4.5 cm2) Mitral Valve MV E Max Kenny. 75.0 (40-130 cm/s) MV A Velocity 28.0 (40-130 cm/s) E/A Ratio 2.62 MV PHT 63.0 ms Pulmonary Valve PV Peak Velocity 79.0 (50-150 cm/s) Tricuspid Valve TR P. Velocity 286.00 cm/s RAP Estimate 10.00 mmHg RVSP 42.70 mmHg Left Ventricle The left ventricle is normal size. The left ventricular systolic function is low normal. There is normal left ventricular wall thickness. There is normal LV segmental wall motion. The left ventricular diastolic function is normal. LVEF is 50%. Right Ventricle The RV free wall is difficult to visualize, but overall RV appears grossly normal in size and function. Atria The left atrium size is normal. The right atrium size is normal. There is no Doppler evidence of interatrial shunt. Aortic Valve The aortic valve opens well. There is no aortic valvular stenosis. No aortic regurgitation is present. Mitral Valve The mitral valve is normal in structure. No evidence of mitral valve stenosis. There is no mitral valve regurgitation noted. Tricuspid Valve The tricuspid valve leaflets are thin and pliable. Trace tricuspid regurgitation. There is insufficient TR jet to estimate RVSP. Pulmonic Valve The pulmonary valve is normal in structure. Mild pulmonic regurgitation. Great Vessels The aortic root is normal in size. The ascending aorta is normal in size. IVC is normal in size and collapses >50% with inspiration. Pericardium There is no pericardial effusion. Other Information Study Quality: Technically Difficult Conclusion Technically difficult study due to poor acoustic windows. Normal LV systolic function. The RV free wall is difficult to visualize, but overall RV appears grossly normal in size and function. Mild PI. Electronically signed by : Britni Alejandra MD 08/28/2023 11:17:54
[2023-08-26 15:42] LABS: Chloride 103 mmol/L (98-107); Potassium 4.4 mmoL/L (3.5-5.1); Sodium 137 mmol/L (136-145)
[2023-08-26 15:45] LABS: Alanine Aminotransferase 31 U/L (12-78); Albumin Level 3.8 g/dl (3.5-5.0); Albumin/Globulin Ratio 1.4 (1.1-1.8); Alkaline Phosphatase 111 U/L (38-126); Anion Gap 10.4 mEq/L (5-15); Aspartate Amino Transferase 35 U/L (17-59); Bilirubin,Total 0.5 mg/dl (0.2-1.3); Blood Urea Nitrogen 23 mg/dl (9-20); Calcium 9.1 mg/dl (8.4-10.2); Carbon Dioxide 28 mmol/L (22.0-30.0); Creatinine Clearance Estimated 67 mL/min (50-200); Estimated Glomerular Filt Rate 49 ml/min (>60); GFR (African American) 59 ML/MIN (>60); Globulin 2.8 g/dL (1.3-3.2); Glucose 102 mg/dl (74-100); Total Protein,Serum 6.6 g/dl (6.3-8.2)
[2023-08-26 15:54] LABS: Lactate Venous 1.4 mmol/L (0.4-2.0); VBG Base Excess 0.1 mmol/L (-2.4-2.3); VBG HCO3 25.9 mmol/L (23-30); VBG Oxygen Saturation 66.1 % (50-70); VBG PCO2 49.4 mmol/L (35-51); VBG PH 7.34 mmol/L (7.31-7.41); VBG PO2 34.9 mmol/L (28-40); VBG Total CO2 27.5 mmol/L (23-27)
[2023-08-26 15:55] LABS: NT Pro Brain Natriuretic Pep. 391 pg/mL (0-450)
[2023-08-26 16:01] LABS: Troponin I < 0.01 ng/ml (0.00-0.034)
--- NOTE | 2023-08-26 16:45 | PC.NURSE ---
DR PEREZ AT BEDSIDE TO UPDATE PT AND FAMILY
[2023-08-26 16:56] VITALS: BP 123/61; PULSE 62; RESP 17; TEMP 36.7; O2SAT 96
== END 2023-08-26 16:56 | disposition home or self-care (01) ==
LOC: UTC 13:36 → ER 14:40
PROVIDERS: Emergency Provider Emergency Medicine; PCP Internal Medicine
DX: I49.3 Ventricular premature depolarization (principal); I44.0 Atrioventricular block, first degree; R06.02 Shortness of breath; R42 Dizziness and giddiness; E78.5 Hyperlipidemia, unspecified; I11.9 Hypertensive heart disease without heart failure; I25.10 Atherosclerotic heart disease of native coronary artery without angina pectoris; Z87.891 Personal history of nicotine dependence; Z95.5 Presence of coronary angioplasty implant and graft
CPT/HCPCS: 71046; 80053; 82803; 83880; 84484; 85025; 93005; 93225; 93227; 93306; 99285

== ENCOUNTER 2023-09-10 13:35 | Outpatient (CLI) | payer MEDICARE, SELFPAY | END 2023-09-10 23:59 | disposition home or self-care (01) | LOC: RT 13:37 | PROVIDERS: PCP Internal Medicine; Visit Provider Physician Assistant | DX: R42 Dizziness and giddiness (principal); I49.1 Atrial premature depolarization; I49.3 Ventricular premature depolarization | CPT/HCPCS: 93270 ==

== ENCOUNTER 2023-09-16 14:17 | Outpatient (CLI) | payer MEDICARE, SELFPAY ==
[2023-09-16] MEDS: ALBUTEROL 0.083% 2.5 MG/3 ML NEB IH (14:58)
--- NOTE | 2023-09-16 14:59 | PC.NURSE ---
PFT completed on Pt without incident. Albuterol 0.083% given via HHN, per written protocol, Pt tolerated tx well.
== END 2023-09-16 23:59 | disposition home or self-care (01) ==
LOC: RT 14:19
PROVIDERS: PCP Internal Medicine; Visit Provider Physician Assistant
DX: R06.00 Dyspnea, unspecified (principal); J45.909 Unspecified asthma, uncomplicated; Z87.891 Personal history of nicotine dependence
CPT/HCPCS: 94060; 94726; 94729; J7613

== ENCOUNTER 2023-09-25 09:07 | Outpatient (CLI) | payer MEDICARE, SELFPAY ==
--- NOTE | 2023-09-25 09:09 | CA_ITS ---
FINAL REPORT TECHNIQUE: Color Doppler, duplex Doppler and nino scale sonography of the bilateral neck vasculature was performed. Velocities were measured in the carotid arteries. Stenosis evaluation based on velocity criteria. CLINICAL HISTORY: dizziness COMPARISON: None FINDINGS: The peak systolic velocity of the right common carotid artery is 78 cm/sec and internal carotid artery 75 cm/sec. The diastolic velocity in the internal carotid artery is 27 cm/sec. The ICA/CCA ratio is 0.97. Visually, a small amount of plaque is seen. These findings are consistent with less than 50% stenosis. The external carotid artery is patent. The right vertebral artery is patent with antegrade flow. The peak systolic velocity of the left common carotid artery is 97 cm/sec and internal carotid artery 112 cm/sec. The diastolic velocity in the internal carotid artery is 39 cm/sec. The ICA/CCA ratio is 1.4. Visually, a small amount of plaque is seen. These findings are consistent with less than 50% stenosis. The external carotid artery is patent. The left vertebral artery is patent with antegrade flow. IMPRESSION: No evidence of significant carotid stenosis. Bilateral patent vertebral arteries. If indicated, CTA or MRA could further evaluate. Reviewed, Interpreted and Dictated by Sam Fonseca III, MD Transcribed by Basilia Dunn Authenticated and . [facility]
--- NOTE | 2023-09-25 09:37 | CT_ITS ---
FINAL REPORT TECHNIQUE: Axial images were obtained from the lung apex to the mid abdomen by computed tomography. Coronal reformatted images were obtained. This study was performed with techniques to keep radiation doses as low as reasonably achievable, (ALARA). Individualized dose reduction techniques using automated exposure control or adjustment of mA and/or kV according to the patient''s size were employed. CLINICAL HISTORY: dyspnea, asthma, former smoker COMPARISON: None FINDINGS: There are multiple mildly enlarged mediastinal nodes. No axillary mass or adenopathy is seen.There is no pericardial or pleural effusion. Mild emphysema and mild scarring are noted. There is a focal soft tissue opacity in the lateral right upper lobe measuring up to 31 mm in length. This is favored to represent focal scarring. The chest wall is intact. Limited images of the upper abdomen demonstrate a low-attenuation mass in the left liver dome measuring 19 mm with a nonspecific appearance but favored to represent cyst or hemangioma. IMPRESSION: Lateral right upper lobe soft tissue opacity favored to represent scarring. Recommend follow-up CT scan in 3 months to evaluate for stability. 19 mm mass left liver dome. This could be further evaluated with liver mass protocol CT or MRI. Reviewed, Interpreted and Dictated by Sam Fonseca III, MD Transcribed by Roxana Melendez Authenticated and [facility]
== END 2023-09-25 23:59 | disposition home or self-care (01) ==
LOC: RT 09:09
PROVIDERS: PCP Internal Medicine; Visit Provider Physician Assistant
DX: R42 Dizziness and giddiness (principal); R06.00 Dyspnea, unspecified; J45.909 Unspecified asthma, uncomplicated; Z87.891 Personal history of nicotine dependence
CPT/HCPCS: 71250; 93880

== ENCOUNTER 2023-10-09 10:53 | Day surgery (SDC) | payer MEDICARE, SELFPAY ==
--- NOTE | 2023-10-09 07:32 | IR_ITS ---
APPROVED REPORT Patient Location: Outpatient Plastic Molding Operator: ANTONI Ramirez RT (R) PROCEDURES 1. Pocket formation for Permanent Pacemaker Placement. 2. Placement of an atrial sensing and pacing coil into the right atrial appendage. 3. Placement of a ventricular sensing and pacing coil in the right ventricular apex. 4. Permanent Pacemaker Placement. INDICATION Symptomatic bradycardia Informed consent was obtained prior to the procedure. COMPLICATIONS None Estimated Blood Loss: Less than 10 mls TECHNIQUE 1% Lidocaine with epinephrine used to anesthetized the left anterior aspect of the chest. Scalpel was used to make the initial cutaneous incision while electrocautery was used to dissect down tinto the fascia. The fascia was lifted off the pectoralis muscle and digitally manipulated creating a pocket for the pacemaker. The patient was then placed in Trendelenburg position and the subclavian vein was accessed twice via the Selinger technique, there are two wires in the vein. A 6 Mongolian sheath was placed under fluoroscopic guidance into the subclavian vein over one of the wires while keeping the other wire in place within the subclavian vein. The dilator was removed from the sheath. Using fluoroscopic guidance, the ventricular lead was placed into the right ventricular apex, screwed and secured into place. Electronic interrogation proved acceptable thresholds and voltage within the lead. Using 3-0 silk, the ventricular lead was then secured into place. Lead was secured to the facia using the 3-0 silk. Following this, the sheath was pealed away. An additional 6 Mongolian fresh sheath and dilator was placed over the existing wire. Using fluoroscopic guidance, the atrial lead was the placed into the right atrial appendage and screwed and secured in place. Electrical interrogation demonstrated acceptable thresholds and voltage number. The atrial lead was then secured into place using 3-0 silk. 1 gram of Ancef was used to flush the pocket. Following the pacemaker generator being secured to the fascia and in place, Monocryl was used to close the subcutaneous layers while viviana were used to close the cutaneous layer. A pressure dressing was placed and the patient was transferred to the postop holding area in stable condition for postoperative care. INTERROGATION Generator [facility] [id number] Generator Serial number: [id number] Atrial lead model number: Tendril STS, 52cm, 2088TC Atrial lead serial number: [id number] P-wave: 3.5-4mV Threshold: 0.75V@0.4ms Right Ventricular lead model number: Ale STS, 58cm, 2087TC Right Ventricular lead serial number: [id number] R-wave: 8mV Impedance: 600 ohms Threshold: 0.75V@0.4ms Pacing Parameters: Mode: DDDR Base/Max Track: 60 ppm / 130 ppm No diaphragmatic stimulation at 10 volts. IMPRESSION 1. Successful pocket formation for Permanent Pacemaker Placement. 2. Successful placement of an atrial sensing and pacing coil into the right atrial appendage. 3. Successful placement of a ventricular sensing and pacing coil in the right ventricular apex. 4. Successful permanent Pacemaker Placement. PLAN 1. post op wound care Electronically signed by : Matthew Perez MD 10/10/2023 10:16:54
[2023-10-09 11:02] VITALS: BMI 30.7
--- NOTE | 2023-10-09 11:05 | XR_ITS ---
FINAL REPORT CLINICAL HISTORY: Confirm pacemaker/AID placement COMPARISON: 08/26/2023 FINDINGS: No acute pulmonary opacity is present. There is no evidence of effusion or pneumothorax. Mediastinum is unremarkable. There has been interval placement of a dual-lead left subclavian device. Heart size is normal. IMPRESSION: Interval placement dual-lead left subclavian device without pneumothorax. Reviewed, Interpreted and Dictated by Agustin Lo MD Transcribed by Roxana Melendez Authenticated and [facility]
[2023-10-09 11:17] VITALS: BP 127/91; PULSE 57; RESP 17; O2SAT 97
[2023-10-09 11:28] LABS: Basophils # 0.1 K/mm3 (0-0.2); Basophils % 0.7 % (0.1-2.0); Eosinophils # 0.2 K/mm3 (0.0-0.4); Eosinophils % 2.1 % (0.1-12.0); Hematocrit 40.3 % (42.0-52.0); Hemoglobin 15.3 g/dL (14.1-18.0); Lymphocytes # 2.3 K/mm3 (0.7-4.5); Lymphocytes % 28.3 % (10-50); Mean Corpuscular HGB Conc 37.9 g/dL (31.8-35.4); Mean Corpuscular Hemoglobin 34.3 pg (27.0-31.2); Mean Corpuscular Volume 90.6 fl (80-94); Monocytes # 0.8 K/mm3 (0.1-1.0); Monocytes % 9.2 % (1.7-9.3); Neutrophils # 4.9 K/mm3 (1.8-7.8); Neutrophils % 59.6 % (37.0-80.0); Platelet Count 184 K/mm3 (142-424); Red Blood Count 4.45 M/mm3 (4.60-6.20); Red Cell Distribution Width 14.4 % (11.5-17.5); White Blood Count 8.1 K/mm3 (4.8-10.8)
[2023-10-09 11:42] LABS: Anion Gap 11.1 mEq/L (5-15); Blood Urea Nitrogen 22 mg/dl (9-20); Calcium 9.1 mg/dl (8.4-10.2); Carbon Dioxide 24 mmol/L (22.0-30.0); Chloride 107 mmol/L (98-107); Creatinine Clearance Estimated 79 mL/min (50-200); Estimated Glomerular Filt Rate 58 ml/min (>60); GFR (African American) 71 ML/MIN (>60); Glucose 90 mg/dl (74-100); Potassium 4.1 mmoL/L (3.5-5.1); Sodium 138 mmol/L (136-145)
[2023-10-09] MEDS: 0.9 % SODIUM CHLORIDE 1000ML 1,000 ML 25 ML IV (13:07)
[2023-10-09] MEDS: LIDOCAINE 1% W/EPI 1:100,000 20ML VIAL 20 ML SQ (13:07)
[2023-10-09] MEDS: CEFAZOLIN SODIUM 1 GM in 0.9 % SODIUM CHLORIDE 50 ML IV (13:07)
[2023-10-09] MEDS: FENTANYL 100MCG/2ML VIAL 50 MCG IV (14:02)
[2023-10-09] MEDS: MIDAZOLAM HCL 1MG/1ML 5ML VIAL 1 MG IV (14:02)
[2023-10-09] MEDS: PROPOFOL 10MG/ML 20ML VIAL 200 MG IV (14:04)
[2023-10-09 14:05] VITALS: BP 129/59; PULSE 63; RESP 18; O2SAT 96
[2023-10-09 14:25] VITALS: BP 159/65; PULSE 66; RESP 18; O2SAT 94
[2023-10-09 14:40] VITALS: BP 152/65; PULSE 69; RESP 18; O2SAT 94
[2023-10-09 14:55] VITALS: BP 159/87; PULSE 82; RESP 18; O2SAT 97
[2023-10-09 15:13] VITALS: BP 188/64; PULSE 73; RESP 18; O2SAT 96
== END 2023-10-09 15:46 | disposition home or self-care (01) ==
PROVIDERS: PCP Internal Medicine; Visit Provider Internal Medicine
DX: I44.1 Atrioventricular block, second degree (principal); I48.92 Unspecified atrial flutter; I49.3 Ventricular premature depolarization; I49.1 Atrial premature depolarization; R00.1 Bradycardia, unspecified; I10 Essential (primary) hypertension; I25.10 Atherosclerotic heart disease of native coronary artery without angina pectoris; Z87.891 Personal history of nicotine dependence; Z79.899 Other long term (current) drug therapy; E78.5 Hyperlipidemia, unspecified
CPT/HCPCS: 33208; 71045; 80048; 85025; 99152; 99153; C1785; C1898; J2250; J3010

== ENCOUNTER 2023-11-05 12:01 | Outpatient (CLI) | payer MEDICARE, SELFPAY ==
--- NOTE | 2023-11-05 12:02 | CT_ITS ---
FINAL REPORT CLINICAL HISTORY: Liver Mass upper abdomen demonstrate a low-attenuation mass in the left liver dome measuring 19 mm with a nonspecific appearance but favored to represent cyst or hemangioma. COMPARISON: CT of the chest 09/25/2023 FINDINGS: CT ABDOMEN PELVIS WITH AND WITHOUT CONTRAST: Precontrast enhanced images reveal no evidence of renal stones. There is streak artifact in the lower chest secondary to a pacemaker. The lung bases are clear. There is a well-circumscribed focus present in the superior aspect of the left lobe of the liver measuring 1.9 x 1.4 cm in size, with no peripheral enhancement. The overall appearance is stable on the 5-minute delayed images. The overall appearance is most consistent with a hepatic cyst. The spleen is unremarkable. The adrenals are normal. The pancreas is unremarkable. The kidneys enhance appropriately. There is advanced degenerative disc disease present at the L5-S1 level. Postoperative changes are noted in the anterior pelvic wall. No pelvic mass or adenopathy is present. There is ectasia of the left iliac artery measuring up to 1.7 cm in size. IMPRESSION: The well-circumscribed mass in the superior aspect of the left lobe of the liver has a CT appearance with and without contrast of a simple cyst. Advanced degenerative disc disease is present at the L5-S1 level. Ectasia of the left iliac artery measuring up to 1.7 cm in size. Reviewed, Interpreted and Dictated by Chance Gomez MD Transcribed by Basilia Dunn Authenticated and [facility]
[2023-11-05 12:30] LABS: Blood Urea Nitrogen 20 mg/dl (9-20); Estimated Glomerular Filt Rate 65 ml/min (>60); GFR (African American) 78 ML/MIN (>60)
[2023-11-05] MEDS: SODIUM CHLORIDE 0.9% 10ML SYR (RAD ONLY) 10 ML IV (13:31)
[2023-11-05] MEDS: IOPAMIDOL-370 (76%);100ML BOTTLE 75 ML IV (13:31)
== END 2023-11-05 23:59 | disposition home or self-care (01) ==
LOC: RAD 12:02
PROVIDERS: PCP Internal Medicine; Visit Provider Nurse Practitioner
DX: R16.0 Hepatomegaly, not elsewhere classified (principal); R10.9 Unspecified abdominal pain
CPT/HCPCS: 36415; 74177; 82565; 84520; Q9967

== ENCOUNTER 2023-11-25 13:56 | Outpatient (CLI) | payer MEDICARE, SELFPAY ==
--- NOTE | 2023-11-25 14:05 | XR_ITS ---
FINAL REPORT CLINICAL HISTORY: Injury to right foot, bruises, redness and heat FINDINGS: RIGHT FOOT 3 views of the right foot were obtained. There is no acute fracture or dislocation. There are mild degenerative changes. Small calcaneal spurs are noted. Visualized joint spaces are normally aligned. Soft tissues are unremarkable. IMPRESSION: No acute bony abnormality. Reviewed, Interpreted and Dictated by Sam Fonseca III, MD Transcribed by Kiersten Arteaga Authenticated and [facility]
== END 2023-11-25 23:59 | disposition home or self-care (01) ==
LOC: RAD 13:59
PROVIDERS: PCP Internal Medicine; Visit Provider Internal Medicine
DX: S99.921A Unspecified injury of right foot, initial encounter (principal); L03.115 Cellulitis of right lower limb
CPT/HCPCS: 73630

== ENCOUNTER → 2024-02-17 06:34 | Outpatient (CLI) | payer MEDICARE, SELFPAY | LOC: SL 06:35 | PROVIDERS: PCP Specialist; Visit Provider Specialist | DX: G47.33 Obstructive sleep apnea (adult) (pediatric) (principal) | CPT/HCPCS: G0399 ==

== ENCOUNTER 2024-05-14 11:59 | Outpatient (CLI) | payer MEDICARE, SELFPAY | END 2024-05-14 23:59 | disposition home or self-care (01) | PROVIDERS: PCP Internal Medicine; Visit Provider Physician Assistant | DX: I49.3 Ventricular premature depolarization (principal) | CPT/HCPCS: 93225; 93227 ==

== ENCOUNTER 2024-05-18 11:25 | Outpatient (CLI) | payer MEDICARE, SELFPAY | END 2024-05-18 23:59 | disposition home or self-care (01) | LOC: RT 11:26 | PROVIDERS: PCP Internal Medicine; Visit Provider Physician Assistant | DX: I49.3 Ventricular premature depolarization (principal) | CPT/HCPCS: 93270 ==

== ENCOUNTER 2024-06-08 10:00 | Outpatient (RCR) | payer MEDICARE, SELFPAY ==
--- NOTE | 2024-06-01 11:05 | HMH.PTOPEV ---
PT Outpatient Evaluation Rehab PT Outpatient Evaluation Start: 06/01/24 09:52 Freq: Status: Active Protocol: Document 06/01/24 10:02 WARREN (Rec: 06/01/24 11:05 WARREN [id number]) E-signed By Joanne Cisneros, PT Outpatient Therapy Subjective History Subjective History Pt is a 78 y/o male who reports chronic LBP since he was in the in 1966. Pt reports gradual worsening of symptoms overtime. Pt denies having PT treatment for LBP. Pt reports constant central low back pain and radiating pain/paresthesia down the posterior aspect of both legs to the calf region. Pt reports intensity of pain fluctuates with activity. Pt states his legs often feel weak due to leg pain, denies required use of an AD and denies recent falls. Pt denies b/b dysfunction. Pt reports pain is aggravated by prolonged sitting, standing, walking, rolling, and lifting. Pt reports most recent lumbar spine MRI on 05/08/23 with impression of Multilevel lumbar degenerative change as described, most severe at the L3-4 and L5-S1 levels as described. Pt reports he is taking prescribed Tramadol which helps decrease severity of symptoms. Pt reports he saw a neurosurgeon and was recommended surgery to fix L2- 5 but wanted him to have conservative care first. Pt reports he returns to the neurosurgeon on 07/21/24 for his next follow-up visit. 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 Chief Complaint Pain,Stiff Symptom Type Ache,Dull,Numbness,Tingling, Shooting Symptoms Relieved By Nothing Symptoms Aggravated By Sitting,Standing,Bending/ Stooping,Physical Activity, Walking,Lifting Current Functional Limitations Lifting,Housework,Sleeping, Standing,Sitting,Walking Symptom Description Constant but Variable Level of pain today (0-10) 8 Pain scale - at its best (0-10) 6 Pain scale - at its worst (0-10) 10 Lumbopelvic Eval Posture Lumbar Spine Posture Standing Position Flattened,Decreased Lordosis Assistive device Assistive Devices None / NA Gait Observation General Gait Pattern Observation Shuffling Step Palapation tenderness bilateral lumbar spinal tenderness Yes: L1-S1 paraspinal tenderness Yes: thoracolumbar PS Lumbar/Sacral Palpation Findings Tenderness,Muscle Guarding Lumbar/Sacral Palpation Overall Comment 3/4 TTP Accessory Movement L-spine Vertebrae Accessory Movements Central P/A [place] that Elicit Symptoms L2 bilateral L3 bilateral L4 bilateral L5 bilateral S1 bilateral Range of Motion Lumbar Spine Active Flexion Range of 25 Motion (degrees) Lumbar Spine Active Extension Range of 5 Motion (degrees) Left Lumbar Spine Lateral Flexion Active 5 Range of Motion (degrees) Right Lumbar Spine Lateral Flexion 5 Active Range of Motion (degrees) Manual Muscle Test Bilateral Knee Extension Strength Grade 5 Normal Knee Flexion Strength Grade 4 Good Hip Flexion Strength Grade 4- Good- Hip Abduction Strength Grade 4- Good- Hip Adduction Strength Grade 4- Good- Hip Extension Strength Grade 3+ Fair+ Ankle Dorsiflexion Strength Grade 5 Normal DTR Rt Patellar 1+ Lt Patellar 1+ Rt Gastroc/Soleus 1+ Lt Gastroc/Soleus 1+ Altered Sensation Bilateral LE Dermatome Level L4,L5,S1 Comment decreased light touch sensation L compared to R Special Tests Hip Rodolfo (ANGELA) Test Positive Left,Positive Right Unilateral Straight Leg Raise (Lasegue) Positive Left,Positive Right Test Oswestry Index Section 1 Pain Intensity The pain comes and goes and is severe Section 2 Personal Care (Washing,Dresing) increase the pain and I find it necessary to change my way of doing it Section 3 Lifting lifting heavy weights off the floor, but I can manage if they are Section 4 Walking I cannot walk more than 1/2 mile without increasing pain Section 5 Sitting Pain prevents me from sitting for more than one hour Section 6 Standing I cannot stand more than 1/2 hour without increasing pain Section 7 Sleeping Because of my pain, my normal night's sleep is less than 4 hours Section 8 Social Life Pain has restricted my social life and I do not go out often Section 9 Traveling I get extra pain while traveling which compels me to seek alternate fo Section 10 Changing Degreee of Pain My pain is gradually getting worse Score and Risk Level Oswestry Sc 31 Oswestry Risk Level Severe Disability Outpatient Therapy Assessment Impairments Problems/Impairmments Palpation Tenderness,Impaired Range of Motion,Impaired Strength,Impaired Walking, Impaired Standing,Impaired Sitting,Impaired Lifting, Impaired Household Care, Impaired Squatting,Impaired Bending,Subjective C/O Pain, Impaired Self Care/Self Management Prognosis Rehab Potential Good Comment Barriers to progress include chronic pain since 1966 Clinical Impression Consistent with Diagnosis Yes Short Term Goals Number of Weeks 3 Increase Range of Motion Yes: Improve lumbar AROM flex to at least 35-40 to assist with function Improve Oswestry Score Yes Decrease Subjective C/O Pain Yes: Improve pain at worst to 8/10 to improve overall QOL Improve Self Care/Self Management Yes Patient to be Ind w/ HEP Yes [facility] Goals Number of Weeks 6 Increase Range of Motion Yes: Improve lumbar AROM flex to at least 50-60, ext & LF to 10 Increase Strength Yes: Improve BLE MMT to 4-4+/5 grossly to assist with function Increase Ability to Walk Yes: 10' with pain 6/10 or less to assist with iADLs Increase Ability to Stand Yes: 10' with pain 6/10 or less to assist with ADLs Improve Oswestry Score Yes: Improve score to 26 or less to improve overall QOL Decrease Subjective C/O Pain Yes: Improve pain at worst to 6/10 to improve overall QOL Outpatient Therapy Plan of Care Treatment Plan May Include Therapeutic Exercise Including Home Yes Exercise Program Manual Therapy Techniques Yes Neuromuscular Re-education Yes Therapeutic Activities to Return to Yes Previous Functional/Work Level ADL/Self Care Education Yes Mechanical Traction Yes Dry Needling Yes Thermal Modalities Yes Electrical Stimulation Yes Ultrasound/Phonophoresis Yes Iontophoresis Yes Massage Yes Group Therapy for Medicare Yes Eval/Re-Eval Yes Frequency Times per week 2 Duration Number of Weeks 4-6 Addendums This patient is a candidate for social No or vocational rehab? Patient/Guardian verbally acknowledges Yes understanding of treatment program and consents to further treatment? Patient/Guardian verbally acknowledges Yes understanding of diagnosis, prognosis and goals for treatment? Eval Complexity PT Charges 07039 - Moderate Complexity Shoulder/Elbow Eval Shoulder Objective Measurements Elbow Objective Measurements PHYSICIAN CERTIFICATION: I certify the specified therapy services for Chin Tatum are required, authorized, and reviewed every 30 days.
== END 2024-06-08 23:59 | disposition home or self-care (01) ==
LOC: PT 10:00
PROVIDERS: PCP Internal Medicine; Visit Provider Internal Medicine
DX: M54.41 Lumbago with sciatica, right side (principal); M54.42 Lumbago with sciatica, left side
CPT/HCPCS: 97110; 97163

== ENCOUNTER 2024-06-29 10:00 | Outpatient (RCR) | payer MEDICARE, SELFPAY ==
--- NOTE | 2024-06-29 12:01 | HMH.RHREAS ---
Rehab Reassessment Rehab OP Re-assessment Start: 06/17/24 10:05 Freq: Status: Active Protocol: Document 06/29/24 10:48 WARREN (Rec: 06/29/24 12:01 WARREN [id number]) E-signed By Joanne Cisneros, PT Oswestry Index Section 1 Pain Intensity The pain comes and goes and is very mild Section 2 Personal Care (Washing,Dresing) change my way of washing or dressing in order to avoid pain Section 3 Lifting I can only lift very light weights at most Section 4 Walking I cannot walk more than 1/4 mile without increasing pain Section 5 Sitting Pain prevents me from sitting for more than 10 minutes Section 6 Standing I cannot stand more than 10 minutes without increasing pain Section 7 Sleeping Because of my pain, my normal night's sleep is less than 4 hours Section 8 Social Life Pain has restricted my social life and I do not go out often Section 9 Traveling I get extra pain while traveling which compels me to seek alternate fo Section 10 Changing Degreee of Pain My pain is gradually getting worse Score and Risk Level Oswestry Sc 30 Oswestry Risk Level Severe Disability Rehab Re-assessment Subjective Subjective Pt reports he feels 0% improved since starting PT. Pt reports continued constant low back and bilateral radiating pain rated 10/10 at worst on VAS. Pt states severe pain for the first 3 hours after waking up that only improves with Tramadol. Pt reports compliance with HEP with only minimal short-term improvement in symptoms. Pt states he is to return to his doctor at the beginning of July and also has an ablation scheduled for September. Objective Objective Notes Lumbar AROM: flex 30, ext 10, LF 10 Assessment Assessment Notes Pt has attended 7 PT treatment sessions consisting of aerobic exercise, lumbar mobility, LE/core strengthening, LE stretching and HEP with good tolerance. Pt demonstrated only slight improvement in CESAR score by 1 point and lumbar AROM by 5 degrees each plane this date compared to the initial evaluation. Pt continues to report constant moderate- severe pain with radiating symptoms. Due to lack of significant changes with PT treatment thus far, pt is most appropriate to discharge to independent [facility]. Will refer pt back to MD for further pain management and treatment options. Patient goals met ST/5 Goals Not Met p! at worst, lumbar AROM, LTG Revised Goals n/a Plan Plan Discharge to independent [facility] Time and Billing Re-Eval Time 10 Re-Eval Billing Units 0 Charge for PT reassessment? No Charge for OT reassessment? No PHYSICIAN CERTIFICATION: I certify the specified therapy services for Chin Tatum are required, authorized, and reviewed every 30 days.
== END 2024-06-29 23:59 | disposition home or self-care (01) ==
LOC: PT 10:00
PROVIDERS: PCP Internal Medicine; Visit Provider Internal Medicine
DX: M54.41 Lumbago with sciatica, right side (principal); M54.42 Lumbago with sciatica, left side
CPT/HCPCS: 97110; 97530

== ENCOUNTER 2024-12-28 13:57 | Outpatient (RCR) | payer MEDICARE, SELFPAY | END 2024-12-28 23:59 | disposition home or self-care (01) | LOC: PT 13:57 | PROVIDERS: PCP Internal Medicine; Visit Provider Orthopaedic Surgery Orthopaedic Surgery of the Spine | DX: Z48.811 Encounter for surgical aftercare following surgery on the nervous system (principal); R52 Pain, unspecified; R53.1 Weakness; Z98.1 Arthrodesis status; Z95.0 Presence of cardiac pacemaker | CPT/HCPCS: 97161 ==

== ENCOUNTER 2024-12-31 01:50 | Emergency (ER) | payer MEDICARE, SELFPAY ==
[2024-12-31 02:04] VITALS: BP 144/74; PULSE 85; RESP 16; TEMP 36.8; O2SAT 98; BMI 28.7
--- OUTSIDE RECORDS SUMMARY | 2024-12-31 02:06 | XMS_ITS | Clinical Summary ---
Author Organization [facility] Address [address] [place] [address] Care Team Providers Care Mixer Helper Name Role Phone Demetrice Osman MD Primary Care Provider [phone] Allergies No known active allergies Medications gabapentin (NEURONTIN) 400 MG capsule Take 400 mg by mouth 2 (Two) Times a Day. Active sulindac (CLINORIL) 150 MG tablet Take 150 mg by mouth 2 (Two) Times a Day. Active atorvastatin (LIPITOR) 20 MG tablet Take 20 mg by mouth Daily. Active omeprazole (priLOSEC) 20 MG capsule Take 1 capsule by mouth Daily. Active traMADol (ULTRAM) 50 MG tablet TAKE 1 TABLET BY MOUTH EVERY 6 HOURS NEEDED FOR PAIN . DO NOT EXCEED 4 PER 24 HOURS Active tamsulosin (FLOMAX) 0.4 MG capsule 24 hr capsule Take 1 capsule by mouth Daily. Active Dilt-XR 180 MG 24 hr capsule Take 1 capsule by mouth Daily. 06/08/2024 Active atorvastatin (LIPITOR) 20 MG tablet Take 4 tablets by mouth Daily. Active montelukast (SINGULAIR) 10 MG tablet Take 1 tablet by mouth Every Night. Active clopidogrel (PLAVIX) 75 MG tablet Take 1 tablet by mouth Daily. Active bisoprolol (ZEBeta) 10 MG tablet Take 1 tablet by mouth Daily. Active rivaroxaban (XARELTO) 20 MG tablet Take 1 tablet by mouth Daily With Dinner. Active Active Problems Problem Noted Date Diagnosed Date SSS (sick sinus syndrome) 08/05/2024 PVC (premature ventricular contraction) 08/06/19 25 Encounters Date Type Department Care Team Description 10/21/2024 Telephone [facility] [address] [place] [address] [address] [place] [address].LEE- [facility] APPOINTMENT from Last 3 Months Family History Medical History Relation Name Comments Atrial fibrillation Brother 1 Emphysema Brother 2 Atrial fibrillation Mother Atrial fibrillation Sister 1 No Known Problems Sister 2 Relation Name Status Comments Brother 1 Brother 2 Father Mother Sister 1 Sister 2 Alive Social History Tobacco Use Types Packs/Day Years Used Date Smoking Tobacco: Former Cigarettes 1 11 04 970 - 1994 Passive Smoke Exposure: Never Smokeless Tobacco: Never Tobacco Cessation:Counseling Given: Not Answered Alcohol Use Standard Drinks/Week Comments Yes 1 (1 standard drink = 0.6 oz pur e alcohol) Maybe a drink/week Sex and Gender Information Value Date Recorded Sex Assigned at Not on file Legal Sex Male 1:46 PM EDT Gender Identity Not on file Sexual Orientation Not on file Last Filed Vital Signs Vital Sign Reading Time Taken Comments Blood Pressure 112/58 07/30/2024 11:11 AM EDT Pulse 60 07/30/2024 11:11 AM EDT Temperature 36.4 C (97.6 F) 03/21/2018 11:10 AM EST Respiratory Rate - - Oxygen Saturation 97% 07/30/2024 11:11 AM EDT Inhaled Oxygen Concentration - - Weight 114 kg (252 lb) 07/30/2024 11:11 AM EDT Height 193 cm (6' 4 ) 07/30/2024 11:11 AM EDT Body Mass Index 30.67 07/30/2024 11:11 AM EDT Plan of Treatment Health Maintenance Due Date Last Done Comments ANNUAL WELLNESS VISIT 03/20/2018 RSV Vaccine - Adults (1 - 1- dose 75+ series) 09/22/2019 COVID-19 Vaccine (3 - Pfizer risk series) 10/31/2021 10/03/2021, 01/26/2021, 04/24/2020, Additional history exists INFLUENZA VACCINE 10/16/2024 05/19/2024, 02/03/2022 TDAP/TD VACCINES (4 - Td or Tdap) 05/19/2034 05/19/2024, 04/24/2022, 08/12/2013, Additional history exists ZOSTER VACCINE Completed 02/19/2019, 07/2018, 03/09/2013 Pneumococcal Vaccine 50+ Completed 023, 04/14/2015, 03/22/2011 Insurance [facility] [place] [address] Care Teams Mixer Helper Relationship Specialty Start Date End Date Demetrice Osman MD [address] [facility] [place] [id number] PCP - General Family Medicine 07/30/24
--- NOTE | 2024-12-31 02:22 | HMH.EDGENADL ---
Discharge Plan Disposition Patient Disposition: Xfer Short-Term Hosp Condition: Fair Prescriptions Prescriptions: No Action omeprazole 20 mg capsule,delayed release(DR/EC) 20 mg PO BID sildenafil 100 mg tablet See Rx Instructions PO DAILY PRN (Reason: Erectile Dysfunction) Rx Instructions: 100mg 1/2 tab orally daily PRN; administer 30 minutes to 4 hours before activity tamsulosin 0.4 mg capsule 0.4 mg PO HS Patient Comments: TAKE 1 CAPSULE BY MOUTH EVERY DAY AT BEDTIME FOR URINATION Xarelto 20 mg tablet 20 mg PO DAILY Qty: 90 3RF Rx Instructions: must administer with evening meal bisoprolol fumarate 10 mg tablet 10 mg PO DAILY 30 Days Qty: 30 3RF montelukast 10 mg tablet 10 mg PO DAILY atorvastatin [Lipitor] 80 mg tablet 40 mg PO DAILY diltiazem HCl [DILT-XR] 180 mg capsule,ext.rel 24h degradable 180 mg PO DAILY Qty: 90 3RF gabapentin 300 mg capsule 300 mg PO HS Qty: 30 2RF tramadol 50 mg tablet 50 mg PO Q6H MDD 4 PRN (Reason: pain) Qty: 90 0RF clopidogrel [Plavix] 75 mg Tablet 75 mg PO DAILY Qty: 30 6RF Referrals Follow up/Referrals: Provider,Referral, MD [Primary Care Provider, Medical] - See instructions Clinical Impressions Clinical Impression: Post-operative pain, Urinary retention Stand Alone Forms Stand Alone Forms: Transfer Record - ED Instructions Patient Instructions: DI for Low Back Pain Print Language Print Language: Yoruba Discharge ED Provider: Arabella You General Adult HPI General Chief complaint: Back Pain/Injury Stated complaint: back pain Time Seen by Provider: 12/31/24 02:21 Mode of Arrival: EMS Source of Information: Patient and EMS Description of Symptoms (Recalled from ER Triage Doc. by RN): pt presents via ems with c/o worsening back pain since post op nile on 12/15 at [place] for cage placement on L2,3,4,5. Pt reports falls since surgery but has been to follow up since with no issues. Pt denies fevers at home, reports increasing weakness in legs. History of Present Illness HPI narrative: 79-year-old male with history of liver mass, pacemaker, lumbar spinal stenosis, ROB, BPH, CAD presents to the ER via EMS with complaints of worsening back pain, weakness in the legs. Patient had cage placement L2-L5 at the end of November at [facility]. Patient reports he has had progressive pain since the surgery and at follow-up he has been told that everything is okay. Patient reports no fevers at home. present at bedside helps provide history and states patient has gotten weak enough in the last 24 hours that he has not been able to get up to the restroom. He is having some urinary incontinence which they described as getting up to use the restroom but not making it in time. This has been going on for the last 2 to 3 days. He states pain has been significantly worsening over the last 4 days or so. He has been taking his oxycodone and muscle relaxers at home as prescribed. He reports being due for his next oxycodone around 3 AM. I explained to them that we would administer pain medications in the ER and to not take his home medication while in the ED. Patient denies headache or dizziness, no numbness or tingling, he states the pain is worse on the right side of his back and into the right leg but he is more weak in the left leg. No bowel incontinence, he states he has had constipation which is consistent with oxycodone use. No nausea or vomiting. No falls in the last 24 hours. No other complaints or concerns. Related Data Home Medications ?Medication ?Instructions ?Recorded ?Confirmed omeprazole 20 mg capsule,delayed 20 mg PO BID 04/08/23 08/24/24 release sildenafil 100 mg tablet See Rx Instructions PO DAILY PRN 04/08/23 08/24/24 Erectile Dysfunction tamsulosin 0.4 mg capsule 0.4 mg PO HS 05/06/23 08/24/24 atorvastatin 80 mg tablet (Lipitor) 40 mg PO DAILY 06/08/24 08/24/24 montelukast 10 mg tablet 10 mg PO DAILY 06/08/24 08/24/24 Previous Rx's ?Medication ?Instructions ?Recorded clopidogrel 75 mg tablet (Plavix) 75 mg PO DAILY #30 tabs 05/09/23 gabapentin 300 mg capsule 300 mg PO HS #30 caps 08/02/23 bisoprolol fumarate 10 mg tablet 10 mg PO DAILY 30 days #30 tabs 10/24/23 rivaroxaban 20 mg tablet (Xarelto) 20 mg PO DAILY #90 tabs 10/24/23 tramadol 50 mg tablet 50 mg PO Q6H PRN pain #90 tabs 10/21/24 diltiazem HCl 180 mg 180 mg PO DAILY #90 caps 06/08/24 capsule,extended release 24 hr, controlled (DILT-XR) Allergies Allergy/AdvReac Type Severity Reaction Status Date / Time No Known Allergies Allergy Verified 08/24/24 11:14 [facility] Disclaimer: The information contained in this section may have been updated after the patient was seen, as this information can be updated by other users. Medical History PVC (premature ventricular contraction) Hypotension Presence of cardiac pacemaker Dual chamber implant (SEPTEMBER 2023) NSVT (nonsustained ventricular tachycardia) [place] Atrial flutter PAC (premature atrial contraction) Former smoker Dyspnea Atherosclerotic heart disease of [place] coronary artery without angina pectoris BPH loc w urin obs/LUTS Ataxia Benign essential HTN Hyperlipidemia Unspecified kidney failure Allergic rhinitis, unspecified Primary insomnia Hypertension BPH (benign prostatic hyperplasia) CAD (coronary artery disease) ROB (obstructive sleep apnea) Moderate ROB and nocturnal hypoxemia. Decline CPAP therapy. Abnormal findings on diagnostic imaging of heart and coronary circulation Nocturnal hypoxemia History of fibromyalgia History of arthritis High cholesterol History of abdominal hernia Asthma Surgical History S/P angioplasty with stent Hx of heart artery stent History of rotator cuff surgery Family History Other Family history of acute heart failure Social History Smoking Status: Never smoker smoking status stop date: 30 years ago alcohol intake: current alcohol intake frequency: a few times a month substance use type: denies use current occupational status: retired Travel in the last 8 weeks?: None household members: spouse housing: house marital status: Other Medical History Have you received the Flu Vaccine for this season: Yes Have you received the Pneumonia Vaccine: No ROS Obtained: Yes Systems reviewed as appropriate & no additional complaints except as documented Per HPI Physical Exam General General appearance: alert Comment: Appears to be in pain but nontoxic Head Head exam: atraumatic and normocephalic Eye Eye exam: Present PERRL and EOMI ENT ENT exam: Present mucous membranes moist Neck Neck exam: Present normal inspection and full ROM Chest Chest inspection: Present symmetric chest wall rise Respiratory Respiratory exam: Present normal lung sounds bilaterally; Absent respiratory distress, wheezes or stridor Cardiovascular Cardiovascular exam: Present regular rate and normal rhythm Abdominal Exam Abdominal exam: Present soft and tenderness (Mild diffuse with no focal findings, patient states his tenderness is not truly in the abdomen but radiates through to the back); Absent distention, guarding or rebound Rectal Exam Rectal exam: Present normal inspection and normal rectal tone exam: Present normal inspection Extremities Exam Extremities exam: Present full ROM; Absent edema or joint swelling Back Exam Back exam: Present tenderness (Diffusely throughout the low back, worse in the lumbar midline); Absent CVA tenderness (R) or CVA tenderness (L) Comment: Midline and left flank surgical incisions well-approximated, well-healing, no evidence of infection. There is bruising persistent around the left flank primarily Neurological Exam Neurological exam: Present alert, oriented X3, motor sensory deficit (Very slight weakness in the left lower extremity compared to the right, no sensory deficit, no saddle anesthesia, no other deficits) and other (No saddle anesthesia) Psychiatric Psychiatric exam: Present normal affect and normal mood Skin Skin exam: Present warm and dry Medical Decision Making Medical Records Medical records reviewed: Yes I reviewed the patient's medical records. Screening: Per USPSTF and CDC recommendations, given the prevalence of disease in our region, it is our hospital?s policy to screen for HIV and viral Hepatitis for all patients aged 18 and over and those with ongoing risk factors. John Inquiry Pt receiving controlled substance: No Vital Signs: 12/31/24 02:04 Temperature 98.3 F Temperature Source Oral Pulse Rate [Radial] 85 Respiratory Rate 16 Blood Pressure [Right Arm] 144/74 H Blood Pressure Mean [Right Arm] 97 Blood Pressure Position [Right Arm] Sitting 02 Sat by Pulse Oximetry 98 Oxygen Delivery Method Room Air Lab Data Lab Results 12/31/24 03:00: WBC 12.8 H, RBC 3.81 L, Hgb 11.6 L, Hct 34.5 L, MCV 90.6, MCH 30.4, MCHC 33.6, RDW 16.0, Plt Count 323, MPV 9.5, Neut % (Auto) 78.5, Lymph % (Auto) 9.2 L, [place] % (Auto) 11.2 H, Eos % (Auto) 0.3, Baso % (Auto) 0.3, Neut # (Auto) 10.0 H, Lymph # (Auto) 1.2, Emery # (Auto) 1.4 H, Eos # (Auto) 0.0, Baso # (Auto) 0.0, ESR 46 H, PT 14.3 H, INR 1.31 H, Sodium 130 L, Potassium 4.4, Chloride 97 L, Carbon Dioxide 28, Anion Gap 9.4, BUN 17, Creatinine 0.90, Estimated Creat Clear 87, Estimated GFR 81, Est GFR ( Amer) 98, Glucose 120 H, Calcium 8.3 L, Total Bilirubin 0.8, AST 25, ALT 27, Alkaline Phosphatase 173 H, C-Reactive Protein 75.6 H, Total Protein 6.5, Albumin 3.4 L, Globulin 3.1, Albumin/Globulin Ratio 1.1 12/31/24 03:10: Urine Color Yellow, Urine Appearance Clear, Urine pH 7.0, Ur Specific [place] 1.015, Urine Protein Negative, Urine Glucose (UA) Negative, Urine Ketones Negative, Urine Blood Negative, Urine Nitrate Negative, Urine Bilirubin Negative, Urine Urobilinogen 0.2, Ur Leukocyte Esterase Negative, Urine RBC None, Urine WBC None, Ur Squamous Epith Cells Occasional, Urine Bacteria None 12/31/24 03:00 12/31/24 03:00 Orders (Tests/Meds): ED MEDICATIONS Discontinued Medications Generic Name Dose Route Start Last Admin Trade Name Freq PRN Reason Stop Dose Admin Hydromorphone HCl 1 mg 12/31/24 02:34 12/31/24 03:16 Hydromorphone 2mg/Ml Syringe IV 12/31/24 02:35 1 mg ONCE ONE Administration Ondansetron HCl 4 mg 12/31/24 02:24 12/31/24 02:40 Ondansetron 4mg/2ml Vial IV 12/31/24 02:25 4 mg ONCE ONE Administration ORDERS Category Date Time Status XR lumbar spine 2-3V Stat Exams 12/31/24 02:36 Taken CBC w/Auto Diff [Complete Blood Count Auto Diff] Stat Lab 12/31/24 03:00 Completed CMP [Comprehensive Metabolic Panel] Stat Lab 12/31/24 03:00 Completed CRP [C-Reactive Protein] Stat Lab 12/31/24 03:00 Completed ESR [Erythrocyte Sedimentation Rate] Stat Lab 12/31/24 03:00 Completed PT/INR [Prothrombin Time INR] Stat Lab 12/31/24 03:00 Completed Urinalysis and Microscopic Stat Lab 12/31/24 03:10 Completed Medical Decision Narrative: In summary, this 79-year-old male with comorbidities described in the HPI presents to the emergency department today with worsening back pain, weakness in the legs since back surgery. On initial evaluation patient is hemodynamically stable, afebrile, GCS 15, patient has very slight weakness in the left lower extremity compared to the right but no saddle anesthesia, normal rectal tone, patient has diffuse lumbar tenderness into the left flank but surgical incisions are well-appearing. Differential diagnosis includes but is not limited to postoperative pain, hardware malfunction, osteomyelitis, other infection, I also considered the possibility of cauda equina though I am reassured he does not have saddle anesthesia and rectal tone is intact, the slight weakness in the left lower extremity does concern me. I am also concerned that he reports slight urinary incontinence. Additionally I did consider the possibility of stroke but patient's gradual onset of symptoms in the setting of recent surgery and his pain radiating down the backs of the legs is more consistent with radiculopathy type pain and symptoms. Based on these concerns, I ordered hematologic and serum labs, urinalysis, postvoid residual bladder scan, I did consider performing CT lumbar spine but with the extensive hardware in his low back and concerned about significant artifact due to scattering so I believe x-ray is more appropriate at this time. I also ordered inflammatory markers. Patient received Dilaudid and Zofran for pain management. He is resting significantly more comfortably at this time. Labs personally reviewed demonstrate mild leukocytosis WBC 12.8 is nonspecific at this time, hemoglobin 11.6 is anemic but not transfuse blood or actionable at this time, normal platelets, ESR elevated at 46 is nonspecific, PT/INR mildly elevated but nonactionable, CMP nonactionable, CRP is elevated at 75.6. This with the mild leukocytosis and elevated inflammatory markers does increase my suspicion for potential infection but could also just be related to recent significant operative intervention. Since patient is afebrile I am not going to administer antibiotics yet. XR personally interpreted demonstrates no obvious significant hardware malfunction, see radiology read for final interpretation.. UA negative for findings of infection. Postvoid residual volume 200 mL increases my concern for possible early cauda equina. With the clinical findings and lab results I reached out to [facility] since that is where patient had his surgery performed. I was instructed to directly reach out to Dr. Carey, the patient's surgeon, for further recommendations. We did this and I spoke with Dr. Carey by phone. I reviewed the patient's presentation, his inability to ambulate secondary to weakness slightly worse on the left than the right, urinary retention, absence of saddle anesthesia, normal rectal tone. He initially stated he was not concerned about these things in this patient because the patient has dementia and has had a difficult postoperative course. He states this is not significantly different than what the patient had been complaining of previously and he was recommending outpatient follow-up with his office during the day, but I explained that the patient is unable to ambulate and is not going to be safe going home with his since he is not able to ambulate and she is elderly as well. He is agreeable to this. He did not recommend antibiotics or other acute intervention at this time but accepted the patient for transfer to [facility]. I appreciate his time and recommendations. On reassessment patient is resting comfortably since he received pain medication. He and at bedside are agreeable to the plan for transfer. He was reassessed immediately prior to transfer and airway remains patent, GCS 15, only trace weakness in the left leg compared to the right, has status remained stable and unchanged from prior. Appropriate for transfer and transferred in stable condition. Critical Care Critical Care Time Critical Care Time: No
[2024-12-31 02:30] VITALS: BP 144/82; PULSE 85; O2SAT 96
--- NOTE | 2024-12-31 02:36 | XR_ITS ---
PROCEDURE INFORMATION: Exam: XR Lumbosacral Spine Exam date and time: 12/31/2024 2:52 AM Age: 79 years old Clinical indication: Low back pain; Additional info: Worsening pain, recent falls, new hardware TECHNIQUE: Imaging protocol: Radiologic exam of the lumbosacral spine. Views: 2 or 3 views. COMPARISON: MR LUMBAR SPINE WO CON 05/08/2023 10:59 AM FINDINGS: Bones/joints: No acute fracture or dislocation. Postoperative changes of L2-S1 posterior fusion with L2-L3 and L3-L4 intervertebral disc spacers and L2-L3 left lateral fusion. Severe multilevel spondylosis. Moderate degenerative changes of the bilateral hips. Soft tissues: Unremarkable. IMPRESSION: No acute fracture or dislocation.
[2024-12-31] MEDS: ONDANSETRON 4MG/2ML VIAL 4 MG IV ×2 (02:40→04:47)
[2024-12-31 03:00] VITALS: BP 120/51
[2024-12-31 03:13] LABS: Hematocrit 34.5 % (42.0-52.0); Hemoglobin 11.6 g/dL (14.1-18.0); Immature Granulocytes % 0.5 %; Mean Corpuscular HGB Conc 33.6 g/dL (31.8-35.4); Mean Corpuscular Hemoglobin 30.4 pg (27.0-31.2); Mean Corpuscular Volume 90.6 fl (80-94); Nucleated Red Blood Cells % 0 %; Platelet Count 323 K/mm3 (142-424); Red Blood Count 3.81 M/mm3 (4.60-6.20); Red Cell Distribution Width-SD 53.1 fL; White Blood Count 12.8 K/mm3 (4.8-10.8)
[2024-12-31 03:16] LABS: Microscopic, Urine URINE MICROSCOPIC (MICROSCOPIC)
[2024-12-31] MEDS: HYDROMORPHONE 2MG/ML SYRINGE 1 MG IV (03:16)
[2024-12-31 03:18] LABS: Bilirubin,Urine Negative (Negative); Color,Urine YELLOW (Yellow); Glucose,Urine (UA) Negative (Negative); Ketones,Urine Negative (Negative); Leukocyte Esterase,Urine Negative (Negative); PH,Urine 7.0 (5.0-8.5); Protein,Urine Negative (Negative); Specific Gravity, Urine 1.015 (1.005-1.030); Urobilinogen,Urine 0.2 EU/dl (0.2)
[2024-12-31 03:19] LABS: Albumin Level 3.4 g/dl (3.5-5.0); Chloride 97 mmol/L (98-107); Potassium 4.4 mmoL/L (3.5-5.1); Sodium 130 mmol/L (136-145)
[2024-12-31 03:22] LABS: Alanine Aminotransferase 27 U/L (12-78); Albumin/Globulin Ratio 1.1 (1.1-1.8); Alkaline Phosphatase 173 U/L (38-126); Anion Gap 9.4 mEq/L (5-15); Aspartate Amino Transferase 25 U/L (17-59); Bilirubin,Total 0.8 mg/dl (0.2-1.3); Blood Urea Nitrogen 17 mg/dl (9-20); Carbon Dioxide 28 mmol/L (22.0-30.0); Creatinine Clearance Estimated 87 mL/min (50-200); Creatinine,Serum 0.90 mg/dl (0.66-1.25); Estimated Glomerular Filt Rate 81 ml/min (>60); GFR (African American) 98 ML/MIN (>60); Globulin 3.1 g/dL (1.3-3.2); Total Protein,Serum 6.5 g/dl (6.3-8.2)
[2024-12-31 03:23] LABS: Calcium 8.3 mg/dl (8.4-10.2); Glucose 120 mg/dl (74-100); INR 1.31 (0.9-1.1); Prothrombin Time 14.3 seconds (10.1-12.5)
[2024-12-31 03:30] VITALS: BP 145/71
[2024-12-31 03:33] LABS: Squamous Epithelial Cell,Urine Occasional #/hpf (0-5)
[2024-12-31 03:39] LABS: C-Reactive Protein 75.6 mg/L (0-4)
[2024-12-31 04:00] VITALS: BP 151/62
[2024-12-31 04:33] VITALS: BP 150/65; PULSE 77; RESP 16; TEMP 37; O2SAT 97
[2024-12-31] MEDS: HYDROMORPHONE 2MG/ML SYRINGE 0.25 MG IV (04:47)
== END 2024-12-31 04:48 | disposition short-term general hospital (02) ==
PROVIDERS: Emergency Provider Emergency Medicine
DX: M54.59 Other low back pain (principal); G89.18 Other acute postprocedural pain; R26.2 Difficulty in walking, not elsewhere classified; R33.9 Retention of urine, unspecified; E87.1 Hypo-osmolality and hyponatremia; Z98.1 Arthrodesis status
CPT/HCPCS: 51798; 72100; 80053; 81001; 85025; 85610; 85651; 86140; 96374; 96375; 96376; 99285; J1171; J2405